=== PATIENT | female | born 1995 | race Caucasian/White ===

== ENCOUNTER → 2018-11-03 | Outpatient (CLI) | payer MEDICAID, SELFPAY ==
[2018-11-03 15:50] LABS: hCG Titer Quant., Serum 8445 mIU/mL (1-3)
== END | disposition home or self-care (01) ==
LOC: LAB 14:02
PROVIDERS: Referring Provider Obstetrics & Gynecology; Visit Provider Obstetrics & Gynecology
DX: N91.2 Amenorrhea, unspecified (principal)
CPT/HCPCS: 36415; 84702

== ENCOUNTER → 2018-11-26 | Outpatient (CLI) | payer MEDICAID, SELFPAY ==
[2018-11-26 14:51] VITALS: BMI 18.0
[2018-11-26 16:10] LABS: Absolute Lymphocyte Count 1.27 X10^3/uL (0.83-4.51); Absolute Neutrophil Count 3.7 X10^3/uL (2.0-7.7); Basophil# 0.02 X10^3/uL; Basophil% 0.4 % (0-1); Eosinophil# 0.04 X10^3/uL; Eosinophils% 0.7 % (0-5); Hematocrit 35.7 % (37-47); Hemoglobin 12.3 g/dL (12.0-15.0); Lymphocyte # 1.27 X10^3/ul (4.0); Lymphocyte % 23.5 % (19-41); Mean Corp Hgb Conc 34.5 g/dL (32-36); Mean Corpuscular Hgb 30.4 pg (27.0-32.0); Mean Corpuscular Volume 88.1 fL (81-99); Mean Platelet Vol. 9.1 fl (6.2-12.0); Monocyte# 0.39 X10^3/uL; Monocyte% 7.2 % (0-10); NRBC Flagged by Analyzer 0 % (0-5); Neutrophil # 3.67 X10^3/uL (2.7-7.7); Platelet Count 205 K/mm3 (150-450); RBC Distribution Width CV 12.3 % (11.6-14.6); RBC Distribution Width SD 39.8 fl (35.1-43.9); Red Blood Count 4.05 M/mm3 (4.2-5.4); White Blood Count 5.4 K/mm3 (4.4-11.0)
[2018-11-26 17:15] LABS: HIV - WCH Non-Reactive (Nonreactive); Rubella IgG 2.8 IU/mL
[2018-11-26 19:21] LABS: Chlamydia Trachomatis by PCR Negative (Negative); Neisserai gonorrhoeae by PCR Negative (Negative); Probe Check PASS; Sample Adequacy Control PASS; Specimen Processing Control PASS
[2018-11-27 09:27] LABS: Rapid Plasmin Reagin (RPR) NONREACTIVE (NONREACTIVE)
[2018-12-04 10:01] LABS: HPV APTIMA, High Risk Positive (Negative)
[2018-12-04 10:07] LABS: HPV Reflexed? YES, CHARGE PATIENT
== END | disposition home or self-care (01) ==
LOC: LAB 15:04
PROVIDERS: Referring Provider Obstetrics & Gynecology; Visit Provider Obstetrics & Gynecology
DX: Z34.81 Encounter for supervision of other normal pregnancy, first trimester (principal); Z31.430 Encounter of female for testing for genetic disease carrier status for procreative management
CPT/HCPCS: 85025; 86592; 86703; 86762; 86850; 86900; 87086; 87088; 87491; 87591; 87624; 88175; G0145

== ENCOUNTER → 2019-02-17 | Outpatient (CLI) | payer MEDICAID, SELFPAY ==
[2019-02-17 15:06] VITALS: BMI 18.0
== END | disposition home or self-care (01) ==
LOC: LABSPEC 18:10
PROVIDERS: Visit Provider Obstetrics & Gynecology
DX: O26.899 Other specified pregnancy related conditions, unspecified trimester (principal); N89.8 Other specified noninflammatory disorders of vagina; Z3A.00 Weeks of gestation of pregnancy not specified
CPT/HCPCS: 87070; 87205

== ENCOUNTER → 2019-04-08 13:42 | Outpatient (CLI) | payer MEDICAID, SELFPAY ==
[2019-04-08 13:04] VITALS: BMI 18.0
[2019-04-08 14:43] LABS: Absolute Lymphocyte Count 1.35 X10^3/uL (0.83-4.51); Absolute Neutrophil Count 6.6 X10^3/uL (2.0-7.7); Basophil# 0.02 X10^3/uL; Basophil% 0.2 % (0-1); Eosinophil# 0.05 X10^3/uL; Eosinophils% 0.6 % (0-5); Hematocrit 35.3 % (37-47); Lymphocyte # 1.35 X10^3/ul (4.0); Lymphocyte % 15.8 % (19-41); Mean Corpuscular Hgb 31.2 pg (27.0-32.0); Mean Corpuscular Volume 91.7 fL (81-99); Mean Platelet Vol. 9.3 fl (6.2-12.0); Monocyte# 0.49 X10^3/uL; Monocyte% 5.7 % (0-10); NRBC Flagged by Analyzer 0 % (0-5); Neutrophil # 6.63 X10^3/uL (2.7-7.7); Neutrophil % 77.3 % (47-70); Platelet Count 240 K/mm3 (150-450); RBC Distribution Width CV 12.4 % (11.6-14.6); RBC Distribution Width SD 41.2 fl (35.1-43.9); Red Blood Count 3.85 M/mm3 (4.2-5.4); White Blood Count 8.6 K/mm3 (4.4-11.0)
[2019-04-08 14:55] LABS: Glucose Challenge Gest 1H 50g 139 mg/dL (70-140)
[2019-04-08 15:26] LABS: Hepatitis B Surface Antigen Non-Reactive (Nonreactive)
== END ==
PROVIDERS: Nurse Practitioner Women's Health; Referring Provider Obstetrics & Gynecology; Visit Provider Obstetrics & Gynecology
DX: O09.90 Supervision of high risk pregnancy, unspecified, unspecified trimester (principal); Z3A.00 Weeks of gestation of pregnancy not specified
CPT/HCPCS: 36415; 82950; 85025; 87340

== ENCOUNTER → 2019-04-15 10:05 | Outpatient (CLI) | payer MEDICAID, SELFPAY ==
[2019-04-08 13:04] VITALS: BMI 18.0
[2019-04-15 12:11] LABS: Glucose GTT-Gestation. Fasting 72 mg/dL (<105)
[2019-04-15 12:12] LABS: Glucose GTT-Gestational 1 Hr 120 mg/dL (<190)
[2019-04-15 13:28] LABS: Glucose GTT-Gestational 2 Hr 103 mg/dL (<165)
[2019-04-15 14:41] LABS: Glucose GTT-Gestational 3 Hr 96 L (<145)
== END ==
PROVIDERS: Referring Provider Obstetrics & Gynecology; Visit Provider Obstetrics & Gynecology
DX: O99.810 Abnormal glucose complicating pregnancy (principal)
CPT/HCPCS: 36415; 82951; 82952

== ENCOUNTER → 2019-06-06 13:35 | Outpatient (CLI) | payer MEDICAID, SELFPAY ==
[2019-06-06 10:53] VITALS: BMI 18.0
== END ==
PROVIDERS: Referring Provider Obstetrics & Gynecology; Visit Provider Obstetrics & Gynecology
DX: O09.90 Supervision of high risk pregnancy, unspecified, unspecified trimester (principal); Z3A.00 Weeks of gestation of pregnancy not specified
CPT/HCPCS: 87081

== ENCOUNTER → 2019-06-07 11:01 | Outpatient (CLI) | payer MEDICAID, SELFPAY ==
[2019-06-06 10:53] VITALS: BMI 18.0
--- NOTE | 2019-06-07 11:02 | US_ITS ---
STUDY: SECOND AND THIRD TRIMESTER OBSTETRICAL ULTRASOUND - LIMITED REASON FOR EXAM: Female, 23 years old GROWTH LMP: Uncertain. PRIOR ULTRASOUND: None. TECHNIQUE: Transabdominal TECHNICAL QUALITY: Adequate. FINDINGS: There is a single intrauterine fetus. The fetus is in a cephalic presentation. There is demonstrated cardiac activity with a heart rate of 160 bpm. There is a normal amniotic fluid volume. The largest amniotic fluid pocket measures 4.24 cm. The amniotic fluid index (ZAIRA) is 10.6 cm. The placenta is fundal and posterior. There are Grade 2 placental changes. The cervix was not visualized due to the head positioning. BIOMETRY: BPD: 8.71 cm: 35 weeks, 2 days HC: 31.54 cm: 35 weeks, 3 days AC: 30.0 cm: 34 weeks, 0 days FL: 6.91 cm: 35 weeks, 4 days age by prior US: 36 weeks, 6 days. BETSY by prior US: June 29, 2019. age by current US: 35 weeks, 1 days. BETSY by current US: July 11, 2019. Estimated weight: 2483 grams, +/- 363 grams, 9% percentile. US/OB Limited With Biometrics IMPRESSION: Single live uterine gestation with a mean gestational age of 36 weeks and 6 days. The measurements obtained today fall within the lower range of normal. Electronically Signed: Crispin Argueta, at 11:23 EST , Service support ,
== END ==
PROVIDERS: Referring Provider Obstetrics & Gynecology; Visit Provider Obstetrics & Gynecology
DX: Z34.90 Encounter for supervision of normal pregnancy, unspecified, unspecified trimester (principal); Z3A.00 Weeks of gestation of pregnancy not specified
CPT/HCPCS: 76816

== ENCOUNTER 2019-06-07 13:42 | Outpatient (CLI) | payer MEDICAID, SELFPAY ==
[2019-06-06 10:53] VITALS: BMI 18.0
[2019-06-07 13:50] VITALS: BMI 19.9
--- NOTE | 2019-06-07 15:05 | OB.TRI.PN ---
Progress Notes Date of Service: 06/07/19 Progress Note: FHT: 130 Moderate variability reactive no decelerations category I tracing [place]: no regular Contractions reactive nst, iugr will get fu testing
== END 2019-06-07 14:20 | disposition home or self-care (01) ==
LOC: WPOUT 13:43 → OBT 13:44
PROVIDERS: Referring Provider Obstetrics & Gynecology; Visit Provider Obstetrics & Gynecology
DX: O36.5990 Maternal care for other known or suspected poor fetal growth, unspecified trimester, not applicable or unspecified (principal); Z3A.00 Weeks of gestation of pregnancy not specified
CPT/HCPCS: 59025; 59050; 99218; G0378

== ENCOUNTER 2019-06-17 13:30 | Outpatient (RCR) | payer MEDICAID, SELFPAY ==
--- NOTE | 2019-05-16 14:02 | HP.PTEVAL ---
Patient's Visit Information KINZA CRUZ is a 23 year old F referred to Physical Therapy by Ai Vera MD with a diagnosis of DORSALGIA DURING . Date of Evaluation: 05/16/19 Physical Therapist: Lyly Johnson PT, Cert MDT - Visit Plan Frequency: 2-3x /Week Duration: 4-6 Weeks Plan: *34 WEEKS PREGNANANT*. AQUATIC THERAPY FOR PAIN RELEIF, POSTURE CORRECTION/STRENGTHENING, INSTRUCTION IN APPROPRIATE BODY MECHANICS AND ACTIVITY MODIFICATIONS. DLS STARTING WITH A NEUTRAL SPINE PROGRESSING ROM TOLERATED. MINNIE LE ROM, STRETCHING AND STRENGTHENING. HEP INSTRUCTION. - Subjective Findings: Work/Leisure: UNEMPLOYEED. LIVES WITH FATHER. Disability: NO. Present symptoms: MID AND LOW BACK PAIN. PATIENT DENIES MINNIE LE NUMBNESS AND TINGLING. Present since: CHRONIC - INCREASED DURING SECOND TRIMESTER OF THIS . Pain Scale: WORST 7/10, LEAST 3/10. Currently: 5/10. Commenced as a result of: . Symptoms at onset: MID AND LOW BACK PAIN. Worse: SITTING, STANDING, BENDING OVER, TRYING TO FIX POSTURE, WASHING LEGS IN SHOWER - SO HAS TO SIT DOWN, GETTING PANTS ON. Better: CHANGE OF POSITION FREQUENTLY, VERY TEMPORARY RELIEF WITH BACK RUB. Disturbed sleep: YES. Previous history/Previous treatment: SCOLIOSIS DX'D AT AGE 14 AND BACK PAIN EVER SINCE. INCREASED PAIN 2ND TRIMESTER OF THIS . H/O PHYSICAL THERAPY AGE 16 - DIDN'T WORK, BACK BRACE. NO CHIRO, NO INJECTIONS AND NO BACK SURGERY. Coughing/sneezing/straining: NEGATIVE. Gait: INTERMITTENT LIMPING ON RIGHT LE. Difficulty initiating urinatin: NO. Accidents: UNREMARKABLE. Unexplained weight loss: NO. Imaging: YEARS AGO - NONE SINCE ABOUT AGE 16. PMH: DEPRESSION. Recent major surgery: NO. OTHER: PATIENT IS RELUCTANT TO USE BELTS OR BRACES RIGHT NOW AND WOULD LIKE TO TRY OTHER THINGS FIRST. - Objective Sitting/Standing Posture: POOR. MINNIE SCAPULAR WINGING. Lordosis: NORMAL. Lateral shift: NO. Relevant shift: N/A. Active Correction of posture: INCREASES BACK PAIN. Other Observations: INDEP GAIT AND TRANSFERS. Motor deficit: MINNIE LE STRENGTH GROSSLY 5/5 WITH MMT'ING. Sensory deficit: NO. ROM deficit: MNINIE LE'S WFL. Reflexes: UNABLE TO ELICIT MINNIE LE DTR;S. Dural Signs: NEGATIVE MINNIE LE'S. Lumbar mvmt loss: flex - MOD. ext - MOD. R SG - MIN. L SG - MIN. MILD BACK PAIN REPORTED WITH EXT AND RIGHT SG TESTING THAT DID NOT REMAIN WORSE. Core Strength: Core and Postural Strength is Poor. Palpation: INCREASED MUSCLE TONE MINNIE PARASPINAL. NO ACUTE TENDERNESS BUT PAIN IS IN LOWER THORACIC AND ENTIRE LUMBOSACRAL REGIONS. TREATMENT: NEUROMUSCULAR REEDUCATION: RETRAINING OF MVMT AND POSTURE FOR SITTING, LYING AND STANDING ACTIVITIES. - Goals Goal 1:: DECREASE C/O BACK PAIN Goal Time Frame: 4-6 Weeks Goal 2:: IMPROVE LIFTING, SITTING, STANDING, SLEEP, TRAVEL AND HOMEMAKING FUNCTION. Goal Time Frame: 4-6 Weeks Goal 3:: INSTRUCT IN PROPHYLAXIS Goal Time Frame: 4-6 Weeks - Rehabilitation Potential Rehabilitation Potential: Fair - Anticipated Interventions Patient/Client Instruction: Educate patient on: Condition, Plan of Care, Risk Factors, Benefits of Fitness Program For the Purpose of:: To improve self management Therapeutic Exercise to Include: Strength training, Body mechanics, Postural training, In an aquatic setting, Dynamic Lumbar Stabilization For the Purpose of:: To decrease pain, To improve muscle performance and motor function, To increase tolerance to activity/condition/position, To improve ability of physical actions for home/community/work/leisure Thank you for the opportunity to evaluate your patient. For Medicare and Medicare HMO plans, please review the plan of care and approve it. It will need to be FAXED BACK to us at [phone] for Medicare purposes. For Medicare only, by signing this I certify the plan of care. Please let me know if there are questions or concerns regarding this plan of care. Physician Signature: Date:
--- NOTE | 2019-06-08 12:22 | HP.PTREVAL_ITS ---
Ai Vera MD, It has been my pleasure to treat KINZA CRUZ over the last 9 visits for DORSALGIA DURING . Please see the progress note below for an update on the physical therapy plan of care! Subjective: PATIENT REPORTS SHE STILL HAS A COLD. NO LONGER HAVING A FEVER. PATIENT DENIES COMPLICATIONS WITH HER . PATIENT REPORTS THE WATER THERAPY HAS HELPED. DUE DATE - JUNE 29 2019. PATIENT REPORTS SHE IS STILL GETTING MID BACK PAIN BUT IT IS MUCH BETTER. PATIENT REPORTS THAT SINCE STARTING PT HER POSTURE HAS IMPROVED AND LIFTING IS EASIER. Objective/Function: PATIENT WAS SEEN TODAY FOR RE-ASSESSMENT OF PROGRESS TOWARD THE SET PT GOALS AND THE NEED FOR FURTHER PHYSICAL THERAPY VS READINESS FOR DISCHARGE. PATIENT IS RESPONDING WELL TO PT AND IS A GOOD CANDIATE TO CONTINUE. UPON EXAM TODAY: Lumbar mvmt loss: flex - MIN. ext - MOD. R SG - MIN. L SG - MOD. PATIENT DENIES PAIN WITH LUMBAR ROM TESTING TODAY AND ROM HAS IMPROVED. Core Strength: Core and Postural Strength is Poor BUT POSTURAL CONTROL IS IMRPOVING. Palpation: INCREASED MUSCLE TONE MINNIE PARASPINAL. NO ACUTE T ENDERNESS Plan Plan: CONT PER ORIG POC TOLERATED. Goals Goal 1:: DECREASE C/O BACK PAIN Goal Time Frame: 4-6 Weeks Goal Progress: Progressing Goal 2:: IMPROVE LIFTING, SITTING, STANDING, SLEEP, TRAVEL AND HOMEMAKING FUNCTION. Goal Time Frame: 4-6 Weeks Goal Progress: Progressing Goal 3:: INSTRUCT IN PROPHYLAXIS Goal Time Frame: 4-6 Weeks Goal Progress: Progressing Anticipated Interventions Patient/Client Instruction: Educate patient on: Condition, Plan of Care, Risk Factors, Benefits of Fitness Program For the Purpose of:: To improve self management Therapeutic Exercise to Include: Strength training, Body mechanics, Postural training, In an aquatic setting, Dynamic Lumbar Stabilization For the Purpose of:: To decrease pain, To improve muscle performance and motor function, To increase tolerance to activity/condition/position, To improve ability of physical actions for home/community/work/leisure Please do not hesitate to contact me at [phone] by phone or Fax: if you have questions or concerns regarding this new plan of care! Sincerely, Lyly Johnson, PT, Cert MDT
--- NOTE | 2019-06-28 13:52 | HP.PT.NRP ---
HP - Discharge Summary (1) - Patient Information KINZA CRUZ was seen in my office for initial evaluation on 05/16/19. The following Plan of Care was established for this patient: Initial Frequency: 2-3x /Week Initial Duration: 4-6 Weeks - Anticipated Interventions Patient/Client Instruction: Educate patient on: Condition, Plan of Care, Risk Factors, Benefits of Fitness Program For the Purpose of:: To improve self management Therapeutic Exercise to Include: Strength training, Body mechanics, Postural training, In an aquatic setting, Dynamic Lumbar Stabilization For the Purpose of:: To decrease pain, To improve muscle performance and motor function, To increase tolerance to activity/condition/position, To improve ability of physical actions for home/community/work/leisure This patient was last seen in our office . Pertinent comments regarding their Physical therapy will appear below: PATIENT CANCELLED LAST FEW MITCH'TS STATING 40 WKS AND NOT UP TO DOING THERAPY ANYMORE. At this point I will be discontinuing this patient from physical therapy. I would be happy to see this patient again in the future if found appropriate by the physician. Thank you! Lyly Johnson, PT, Cert MDT
== END 2019-06-17 19:00 | disposition home or self-care (01) ==
LOC: PT 13:30
PROVIDERS: Referring Provider Obstetrics & Gynecology; Visit Provider Obstetrics & Gynecology
DX: O99.89 Other specified diseases and conditions complicating pregnancy, childbirth and the puerperium (principal); M54.9 Dorsalgia, unspecified
CPT/HCPCS: 97112; 97113; 97161; 97164

== ENCOUNTER 2019-06-21 12:40 | Outpatient (CLI) | payer MEDICAID, SELFPAY ==
[2019-06-15 10:55] VITALS: BMI 19.9
[2019-06-21 12:56] VITALS: BP 129/74; PULSE 102
[2019-06-21 12:57] VITALS: TEMP 98.2
[2019-06-21 13:13] VITALS: BMI 20.1
[2019-06-21 13:31] VITALS: O2SAT 97
--- NOTE | 2019-06-21 14:04 | OB.TRI.PN ---
Progress Notes Date of Service: 06/21/19 Progress Note: Patient presents for triage evaluation secondary to contractions FHT: 130 Moderate variability reactive no decelerations category I tracing Tangent: irregular Contractions Assessment and plan: false labor Reactive NST, reassuring maternal and status patient discharged to home to follow-up as scheduled. See problem list details for additional plan information. Multi Select Codes - Urinary/Genital Urinary/Genital CPT Codes: 25127-08 non-stress test Interp
== END 2019-06-21 14:00 | disposition home or self-care (01) ==
LOC: WPOUT 12:44 → OBT 12:44
PROVIDERS: Referring Provider Obstetrics & Gynecology; Visit Provider Obstetrics & Gynecology
DX: O47.9 False labor, unspecified (principal); Z3A.00 Weeks of gestation of pregnancy not specified
CPT/HCPCS: 59025; 59050; 99218; G0378

== ENCOUNTER 2019-06-22 14:10 | Outpatient (CLI) | payer MEDICAID, SELFPAY ==
[2019-06-22 11:21] VITALS: BMI 20.2
[2019-06-22 14:20] VITALS: BMI 20.9
[2019-06-22 14:32] VITALS: BP 138/85; PULSE 102
[2019-06-22 14:33] VITALS: TEMP 98.5
[2019-06-22 15:15] LABS: ROM Internal Control Test YES-OK TO RESULT pt. (Internal QC); ROM Patient Test Negative (Negative)
--- NOTE | 2019-06-23 15:02 | OB.TRI.PN ---
Progress Notes Date of Service: 06/22/19 Progress Note: patient seen negative ROM false labor Laboratory Studies: Laboratory Tests 06/22/19 Range/Units 14:45 Vag Amniotic Fld Detect Negative (Negative) Multi Select Codes - Urinary/Genital Urinary/Genital CPT Codes: No Charge
== END 2019-06-22 15:32 | disposition home or self-care (01) ==
LOC: WPOUT 14:15 → OBT 14:15
PROVIDERS: Referring Provider Obstetrics & Gynecology; Visit Provider Obstetrics & Gynecology
DX: O47.9 False labor, unspecified (principal); Z3A.00 Weeks of gestation of pregnancy not specified
CPT/HCPCS: 59025; 59050; 84112; 99218; G0378

== ENCOUNTER 2019-06-29 03:41 | Inpatient (IN) | payer MEDICAID, SELFPAY ==
[2019-04-08 13:04] VITALS: BMI 18.0
[2019-06-29] VITALS (54 sets, daily range): BP systolic 98–141; BP diastolic 57–88; PULSE 80–225; RESP 14–18; TEMP 37.2–37.6; O2SAT 97–100; BMI 20.5
[2019-06-29] MEDS: Lactated Ringers 500 ML 999 ML IV ×2 (03:55→06:04)
[2019-06-29 04:23] LABS: Absolute Lymphocyte Count 2.07 X10^3/uL (0.83-4.51); Absolute Neutrophil Count 9.5 X10^3/uL (2.0-7.7); Basophil# 0.04 X10^3/uL; Basophil% 0.3 % (0-1); Eosinophil# 0.08 X10^3/uL; Eosinophils% 0.6 % (0-5); Hematocrit 33.4 % (37-47); Hemoglobin 10.8 g/dL (12.0-15.0); Lymphocyte # 2.07 X10^3/ul (4.0); Lymphocyte % 16.5 % (19-41); Mean Corp Hgb Conc 32.3 g/dL (32-36); Mean Corpuscular Volume 86.5 fL (81-99); Mean Platelet Vol. 9.7 fl (6.2-12.0); Monocyte# 0.81 X10^3/uL; Monocyte% 6.5 % (0-10); NRBC Flagged by Analyzer 0 % (0-5); Neutrophil % 75.9 % (47-70); Platelet Count 228 K/mm3 (150-450); RBC Distribution Width CV 13.2 % (11.6-14.6); RBC Distribution Width SD 40.7 fl (35.1-43.9); Red Blood Count 3.86 M/mm3 (4.2-5.4); White Blood Count 12.5 K/mm3 (4.4-11.0)
[2019-06-29] MEDS: Lactated Ringers 1,000 ML 200 ML IV ×2 (04:26→10:20)
[2019-06-29] MEDS: fentaNYL-bupivacaine (epidural) 100 ML BAG EPIDURAL ×2 (05:45→10:21)
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
[2019-06-29] MEDS: Oxytocin 30 units/NS 500 ml 30 UNITS/500 ML IV.SOLN IV (10:35)
[2019-06-29] MEDS: fentaNYL 100 MCG/2 ML Ampul IV (14:02)
--- NOTE | 2019-06-29 14:27 | PCM.OPRPT ---
Problem List (1) SROM (spontaneous rupture of membranes) Status: Acute (2) Abnormal glucose Status: Acute Comment: Normal 3hr GTT (3) ASCUS with positive high risk HPV Status: Acute Comment: needs repeat pap at PP (4) Rubella non-immune status, antepartum Status: Acute Comment: avoidance and give MMR (5) Tobacco use during Status: Acute Qualifiers: Comment: encouraged cessation (6) Status: Acute Qualifiers: Comment: nipt-low risk, carrier negative 13 out of 14. 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 anatomy scan normal (7) Supervision of high risk , antepartum Status: Acute Comment: PRR BETSY 06/29/19 girl Nova FOB not involved Josue Vaginal Delivery Maternal Presentation: Active Labor ial Method of Induction: Pitocin Amniotic Membrane Rupture Type: Spontaneous at home Amniotic Fluid Description: Clear Final BETSY: 06/29/19 Gestational age: 40 Weeks and 0 Days Date of Procedure: 06/29/19 Pre-Operative Diagnosis: ial Post-Operative Diagnosis: same Surgery/ Procedure Performed: Spontaneous Vaginal Delivery Type of Anesthesia: Epidural Description of Procedure: Patient began pushing and delivered the head in the [TOSHA] presentation. The head was delivered atraumatically [and a loose nuchal cord ?1 was identified and easily reduced over the infant's head]. The anterior and posterior shoulders delivered without complication followed by the rest of the infant and the was placed on the maternal abdomen. Delayed cord clamping was employed for approximately 60 seconds. Cord was clamped and cut and gentle traction was applied to the cord and the placenta delivered spontaneously immediately following it was noted to be intact with three-vessel cord. The perineum and vagina were inspected and noted to have a small second-degree perineal laceration that was repaired in the usual fashion with 3-0 Vicryl Rapide. EBL was 200 cc. Patient and tolerated delivery well. Placental Delivery Description: Spontaneous Placenta Disposition: [facility] Cord Vessel Description: 3 Vessels Estimated Blood Loss: 200 A gender: Female (1 minute): 8 (5 minute): 9 Episiotomy Description: None Laceration: Perineal Extension/lac, 2nd degree Medications given after delivery: IV Pitocin Complications: None Multi Select Codes - Urinary/Genital Urinary/Genital CPT Codes: 96265 Vaginal Delivery+ PP Care([facility])
[2019-06-29] MEDS: Oxytocin 30 units/NS 500 ml 30 UNITS/500 ML IV.SOLN 334 UNITS IV (14:49)
[2019-06-30] VITALS (9 sets, daily range): BP systolic 95–128; BP diastolic 57–78; PULSE 60–102; RESP 14–16; TEMP 36.4–36.9
[2019-06-30] MEDS: Senna/Docusate Sodium 1 Tablet PO (02:19)
--- NOTE | 2019-06-30 07:40 | PCM.PN.OB ---
Patient Problems: Active and Suspected Problems (Last Reviewed 06/27/19 @ 13:02 by Jessie Monte) SROM (spontaneous rupture of membranes) (Acute) Subjective: Doing well, no complaints.Pain controlled. Denies CP, SOB, N,V. Ambulating well, tolerating po. Lochia moderate, bottle feeding. - Physical Exam Vitals/I&O's: Vital Signs Temp Pulse Resp BP 98.5 F 60 14 112/57 L 06/30/19 03:25 06/30/19 03:25 06/30/19 03:25 06/30/19 03:25 Oxygen Delivery Method Room Air Weight: 135 lb 2.294 oz Body Mass Index (BMI) 20.5 Intake and Output for Last 24 Hours 06/28/19 06/29/19 06/30/19 23:59 23:59 23:59 Intake Total 4477.64 / 4477.64 Output Total 2150 / 2150 Balance 2327.64 / 2327.64 General: Alert, Oriented x3 Abdomen: Soft, Non Tender, Non-Distended, - - FF below U Current Medications Acetaminophen (Tylenol) 1,000 mg PO Q8H PRN PRN PRN Reason: Pain Score 1-3/10 Bisacodyl (Dulcolax) 10 mg RECTAL UD PRN PRN Reason: If no BM Dibucaine (Dibucaine) 1 applic TOPICAL TID PRN PRN; Protocol PRN Reason: Discomfort Fluoxetine HCl (Prozac) 20 mg PO DAILY SAUMYA Hydrocortisone (Hytone) 1 applic TOPICAL TID PRN PRN; Protocol PRN Reason: Discomfort Methylergonovine Maleate (Methergine) 0.2 mg IM X1 PRN PRN Reason: Excess bleeding/uterine atony Ondansetron HCl (Zofran) 4 mg IV Q4H PRN PRN PRN Reason: Nausea Multivit/Folic Acid/Iron (Prenatabs Fa) 1 tablet PO DAILY@1200 SAUMYA Senna/Docusate Sodium (Senokot-S, Mariana-Colace) 1 - 2 tablet PO DAILY PRN PRN PRN Reason: Constipation Last Admin: 06/30/19 02:19 Dose: 1 tablet Documented by: Simethicone (Mylicon) 80 mg PO PCHS PRN PRN Reason: Indigestion/Stomach pain Sodium Chloride () 5 - 15 ml IV UD PRN PRN Reason: SALINE FLUSH Medical Necessity - Tobacco Use Smoking Status: Current every day smoker Assessment/Plan All Active Problems (Last Reviewed 06/27/19 @ 13:02 by Jessie Monte) SROM (spontaneous rupture of membranes) (Acute) Uterine size-date discrepancy, third trimester (Acute) Abnormal glucose (Acute) ASCUS with positive high risk HPV (Acute) Rubella non-immune status, antepartum (Acute) Tobacco use during (Acute) (Acute) Supervision of high risk , antepartum (Acute) URI, acute (Resolved) s/p PPD # 1 1. routine post delivery care 2. bottle feeding- support given 3. rh positive 4. rubella NON immune
[2019-06-30] MEDS: Dibucaine 30 GM Tube 1 APPLIC TOPICAL (08:33)
[2019-06-30] MEDS: FLUoxetine 20 MG Capsule PO (10:27)
[2019-06-30] MEDS: Acetaminophen 500 MG Tablet 1000 MG PO (11:08)
[2019-06-30] MEDS: Naproxen 250 MG Tablet 500 MG PO (16:39)
[2019-07-01 02:40] VITALS: BP 111/77; PULSE 86; RESP 16; TEMP 36.4
[2019-07-01] MEDS: Naproxen 250 MG Tablet 500 MG PO (03:33)
--- NOTE | 2019-07-01 09:40 | DCINST_ITS ---
Discharge Diet: No Restrictions Discharge Activity: Return to Normal Activity, May not drive while taking narcotic pain medications., May Shower May resume sexual activity in: 4-6 weeks Call your doctor if your incision/area has: Continuous Slow Oozing, Sudden Increased Bleeding, Increased Pain/ Swelling, Increased Redness, Foul Smelling Discharge Additional Instructions: If you experience any of the following, contact your healthcare provider. * Bleeding that soaks a pad every hour for 2 hours * Fever 100.4 or higher * Unrelieved incision or abdominal pain * Swelling, redness, discharge or bleeding from your incision or episiotomy site * Your incision begins to separate * Problems urinating (including inability to urinate or burning while urinating). * Visual changes * Severe headache * Flu-like symptoms * Pain or redness in one of both of your breasts * Pain, warmth, tenderness or swelling in your legs, especially the calf area * Frequent nausea and vomiting * Symptoms of depression or anxiety If you experience any of the following, call 911 or go to the nearest Emergency Room. * Chest pain * Problems breathing * Seizure activity * Partial or complete paralysis of a body part, slurred speech, weakness or drooping of the face, or a sudden inability to walk or hold your balance Allergies/Adverse Reactions: Allergies diphenhydramine [From Benadryl] Allergy (Mild, Verified 06/29/19 02:00) Hives Medications to take at Discharge vitamin#30 30 mg iron-10 mg iron-folic acid 1 mg-omg3 capsule 1 tab PO DAILY cap 11/26/18 Fluoxetine HCl 20 mg PO DAILY 06/29/19 Please Follow Up With: Ai Vera MD - [phone] When: Call to make an appointment with your doctor in 6 weeks. If you had elevated Blood pressure or 4th degree laceration you will need to be seen in 2 weeks. Primary Care Physician: Care Physician,No Primary [Primary Care Provider] - Test Results: Test results from this visit will be discussed in further detail at your follow- up appointment, if applicable.
--- NOTE | 2019-07-01 09:40 | PCM.DCVAG ---
Discharge Diet: No Restrictions Discharge Activity: Return to Normal Activity, May not drive while taking narcotic pain medications., May Shower May resume sexual activity in: 4-6 weeks Call your doctor if your incision/area has: Continuous Slow Oozing, Sudden Increased Bleeding, Increased Pain/ Swelling, Increased Redness, Foul Smelling Discharge Additional Instructions: If you experience any of the following, contact your healthcare provider. Bleeding that soaks a pad every hour for 2 hours Fever 100.4 or higher Unrelieved incision or abdominal pain Swelling, redness, discharge or bleeding from your incision or episiotomy site Your incision begins to separate Problems urinating (including inability to urinate or burning while urinating). Visual changes Severe headache Flu-like symptoms Pain or redness in one of both of your breasts Pain, warmth, tenderness or swelling in your legs, especially the calf area Frequent nausea and vomiting Symptoms of depression or anxiety If you experience any of the following, call 911 or go to the nearest Emergency Room. Chest pain Problems breathing Seizure activity Partial or complete paralysis of a body part, slurred speech, weakness or drooping of the face, or a sudden inability to walk or hold your balance Allergies/Adverse Reactions: Allergies diphenhydramine [From Benadryl] Allergy (Mild, Verified 06/29/19 02:00) Hives Medications to take at Discharge vitamin#30 30 mg iron-10 mg iron-folic acid 1 mg-omg3 capsule 1 tab PO DAILY cap 11/26/18 Fluoxetine HCl 20 mg PO DAILY 06/29/19 Please Follow Up With: Ai Vera MD - [phone] When: Call to make an appointment with your doctor in 6 weeks. If you had elevated Blood pressure or 4th degree laceration you will need to be seen in 2 weeks. Primary Care Physician: Care Physician,No Primary [Primary Care Provider] - Test Results: Test results from this visit will be discussed in further detail at your follow-up appointment, if applicable.
--- NOTE | 2019-07-01 09:41 | PN.OBGYN_ITS ---
Patient Problems: Active and Suspected Problems (Last Reviewed 06/27/19 @ 13:02 by Jessie Monte) SROM (spontaneous rupture of membranes) (Acute) Subjective: doing well no complaints pain controlled no CP SOB N V ambulating well tolerating po lochia moderate, bottle feeding going well - Physical Exam Vitals/I&O's: Vital Signs Temp Pulse Resp BP 97.6 F L 86 16 111/77 07/01/19 02:40 07/01/19 02:40 07/01/19 02:40 07/01/19 02:40 Oxygen Delivery Method Room Air Weight: 135 lb 2.294 oz Body Mass Index (BMI) 20.5 Intake and Output for Last 24 Hours 06/29/19 06/30/19 07/01/19 23:59 23:59 23:59 Intake Total 4477.64 / 4477.64 Output Total 2150 / 2150 Balance 2327.64 / 2327.64 General: Alert, Oriented x3 Current Medications Acetaminophen (Tylenol) 1,000 mg PO Q8H PRN PRN PRN Reason: Pain Score 1-3/10 Last Admin: 06/30/19 11:08 Dose: 1,000 mg Documented by: Bisacodyl (Dulcolax) 10 mg RECTAL UD PRN PRN Reason: If no BM Dibucaine (Dibucaine) 1 applic TOPICAL TID PRN PRN; Protocol PRN Reason: Discomfort Last Admin: 06/30/19 08:33 Dose: 1 applicatio Documented by: Fluoxetine HCl (Prozac) 20 mg PO DAILY [facility] Last Admin: 06/30/19 10:27 Dose: 20 mg Documented by: Hydrocortisone (Hytone) 1 applic TOPICAL TID PRN PRN; Protocol PRN Reason: Discomfort Medroxyprogesterone Acetate (Depo-Provera) 150 mg IM .[id number] [facility] Methylergonovine Maleate (Methergine) 0.2 mg IM X1 PRN PRN Reason: Excess bleeding/uterine atony Naproxen (Naprosyn) 500 mg PO BID PRN PRN PRN Reason: PAIN/FEVER Last Admin: 07/01/19 03:33 Dose: 500 mg Documented by: Ondansetron HCl (Zofran) 4 mg IV Q4H PRN PRN PRN Reason: Nausea Multivit/Folic Acid/Iron (Prenatabs Fa) 1 tablet PO DAILY@1200 SAUMYA Last Admin: 06/30/19 13:09 Dose: Not Given Documented by: Senna/Docusate Sodium (Senokot-S, Mariana-Colace) 1 - 2 tablet PO DAILY PRN PRN PRN Reason: Constipation Last Admin: 06/30/19 02:19 Dose: 1 tablet Documented by: Simethicone (Mylicon) 80 mg PO PCHS PRN PRN Reason: Indigestion/Stomach pain Sodium Chloride () 5 - 15 ml IV UD PRN PRN Reason: SALINE FLUSH Medical Necessity - Tobacco Use Smoking Status: Current every day smoker Assessment/Plan All Active Problems (Last Reviewed 06/27/19 @ 13:02 by Jessie Monte) SROM (spontaneous rupture of membranes) (Acute) Uterine size-date discrepancy, third trimester (Acute) Abnormal glucose (Acute) ASCUS with positive high risk HPV (Acute) Rubella non-immune status, antepartum (Acute) Tobacco use during (Acute) (Acute) Supervision of high risk , antepartum (Acute) URI, acute (Resolved) s/p PPD # 2 1. routine post delivery care 2. bottle feeding- support given 3. rh positive 4. rubella immune
[2019-07-01] MEDS: Prenatal Vits Tablet 1 TABLET PO (11:07)
[2019-07-01] MEDS: FLUoxetine 20 MG Capsule PO (11:07)
[2019-07-01] MEDS: MedroxyPROGESTERone 150 MG/ML Syringe IM (11:34)
== END 2019-07-01 13:00 | disposition home or self-care (01) | DRG 560 ==
LOC: WPOUT 03:43 → WP 03:43
PROVIDERS: Admitting Provider Obstetrics & Gynecology; Referring Provider Obstetrics & Gynecology; Visit Provider Obstetrics & Gynecology
DX: O69.81X0 Labor and delivery complicated by cord around neck, without compression, not applicable or unspecified (principal); Z37.0 Single live birth; O99.334 Smoking (tobacco) complicating childbirth; O98.52 Other viral diseases complicating childbirth; R87.810 Cervical high risk human papillomavirus (HPV) DNA test positive; F17.200 Nicotine dependence, unspecified, uncomplicated; Z3A.40 40 weeks gestation of pregnancy; O70.1 Second degree perineal laceration during delivery
CPT/HCPCS: 59025; 59050; 85025; 86850; 86900; 86901; 99218; J7120; G0378; J3490

== ENCOUNTER → 2020-07-24 15:30 | Outpatient (CLI) | payer MEDICAID, SELFPAY ==
[2020-07-24 15:27] VITALS: BMI 21.4
[2020-07-27 20:08] LABS: Chlamydia By Nucleic Acid AMP Negative (Negative)
[2020-07-27 20:31] LABS: Gonococcus By Nucleic Acid AMP Negative (Negative)
[2020-07-31 20:31] LABS: HPV APTIMA, High Risk Positive (Negative); HPV Reflexed? YES, CHARGE PATIENT
== END ==
PROVIDERS: Referring Provider Nurse Practitioner Women's Health; Visit Provider Nurse Practitioner Women's Health
DX: Z12.4 Encounter for screening for malignant neoplasm of cervix (principal); Z11.3 Encounter for screening for infections with a predominantly sexual mode of transmission
CPT/HCPCS: 87491; 87591; 87624; 88175; G0145

== ENCOUNTER → 2020-08-14 | Outpatient (CLI) | payer MEDICAID, SELFPAY ==
[2021-08-17 11:08] LABS: Chlamydia By Nucleic Acid AMP Negative (Negative)
[2021-08-17 11:25] LABS: Gonococcus By Nucleic Acid AMP Negative (Negative)
[2021-08-23 09:34] LABS: HPV APTIMA, High Risk Positive (Negative)
[2021-08-23 18:10] LABS: HPV Reflexed? YES, CHARGE PATIENT
== END | disposition home or self-care (01) ==
LOC: LABSPEC 08-15 06:29
PROVIDERS: Referring Provider Nurse Practitioner Women's Health; Visit Provider Nurse Practitioner Women's Health
DX: N76.0 Acute vaginitis (principal); Z11.3 Encounter for screening for infections with a predominantly sexual mode of transmission
CPT/HCPCS: 87070; 87205; 87491; 87591; 87624; 88175; G0145

== ENCOUNTER → 2021-03-18 16:17 | Outpatient (CLI) | payer MEDICAID, SELFPAY ==
[2021-03-20 22:06] LABS: Chlamydia By Nucleic Acid AMP Negative (Negative)
[2021-03-20 22:49] LABS: Gonococcus By Nucleic Acid AMP Negative (Negative)
[2021-03-25 14:21] LABS: HPV Reflexed? NOT INDICATED
== END ==
PROVIDERS: Referring Provider Nurse Practitioner Women's Health; Visit Provider Nurse Practitioner Women's Health
DX: Z12.4 Encounter for screening for malignant neoplasm of cervix (principal); Z11.3 Encounter for screening for infections with a predominantly sexual mode of transmission
CPT/HCPCS: 87491; 87591; 88175; G0145

== ENCOUNTER → 2021-09-25 | Outpatient (CLI) | payer MEDICAID, SELFPAY ==
[2021-09-25 13:41] LABS: Absolute Lymphocyte Count 2.05 X10^3/uL (0.83-4.51); Absolute Neutrophil Count 3.3 X10^3/uL (2.0-7.7); Basophil# 0.05 X10^3/uL; Basophil% 0.9 % (0-1); Eosinophils% 1.7 % (0-5); Hematocrit 37.8 % (37-47); Hemoglobin 12.9 g/dL (12.0-15.0); Lymphocyte # 2.05 X10^3/ul (0.83-4.51); Lymphocyte % 35.2 % (19-41); Mean Corp Hgb Conc 34.1 g/dL (32-36); Mean Corpuscular Hgb 30.6 pg (27.0-32.0); Mean Corpuscular Volume 89.6 fL (81-99); Mean Platelet Vol. 8.6 fl (6.2-12.0); Monocyte# 0.34 X10^3/uL; Monocyte% 5.8 % (0-10); NRBC Flagged by Analyzer 0 % (0-5); Neutrophil # 3.27 X10^3/uL (2.7-7.7); Neutrophil % 56.2 % (47-70); Platelet Count 212 K/mm3 (150-450); RBC Distribution Width CV 13.2 % (11.6-14.6); RBC Distribution Width SD 43.6 fl (35.1-43.9); Red Blood Count 4.22 M/mm3 (4.2-5.4); White Blood Count 5.8 K/mm3 (4.4-11.0)
[2021-09-25 14:16] LABS: Thyroid Stim Hormone (TSH) 1.09 uIU/mL (0.358-3.74)
== END | disposition home or self-care (01) ==
LOC: PAVLAB 13:08
PROVIDERS: Referring Provider Nurse Practitioner Women's Health; Visit Provider Nurse Practitioner Women's Health
DX: N92.1 Excessive and frequent menstruation with irregular cycle (principal); Z13.29 Encounter for screening for other suspected endocrine disorder
CPT/HCPCS: 36415; 84443; 85025

== ENCOUNTER 2021-10-09 15:36 | Emergency (ER) | payer MEDICAID, SELFPAY ==
[2021-10-09 15:37] VITALS: BP 122/86; PULSE 100; RESP 20; TEMP 37; BMI 18.6
--- NOTE | 2021-10-09 16:20 | EDS_ITS ---
HPI HPI - GI History of Present Illness Chief Complaint: Abd Pain PFSH PFS Medical History (Updated 09/26/21 @ 17:[address] Ai Vera MD) ASCUS with positive high risk HPV Depression History of hemorrhoids Home Medications etonogestrel 68 mg subdermal implant (Nexplanon) 1 implant subdermal ONCE 06/06/21 [History Last Taken Unknown] escitalopram oxalate 10 mg tablet (Lexapro) 10 mg PO DAILY #30 tabs 08/14/21 [Rx Last Taken Unknown] estradiol 1 mg tablet (Estrace) 1 mg PO BID #20 tabs 10/07/21 [Rx Last Taken Unknown] naproxen 500 mg tablet (Naprosyn) 500 mg PO BID PRN pain #20 tabs 10/09/21 [Rx Last Taken Unknown] ondansetron 4 mg disintegrating tablet 4 mg PO Q8H PRN nausea and vomiting #10 tabs 10/09/21 [Rx Last Taken Unknown] Allergy/AdvReac Type Severity Reaction Status Date / Time diphenhydramine Allergy Mild Hives Verified 08/14/21 13:30 [From Maria Isabel] Family History Mother Cancer stage 4 brain cancer Social History current occupational status: employed current occupation: [employer] Smoking Status: Current every day smoker tobacco type: e-cigarettes alcohol intake: never substance use type: does not use caffeine: Yes what type of physical activity do you participate in: walking seatbelt use: always do you feel safe at home: Yes EXAM Physical Exam Const Vital Signs: 10/09/21 15:37 Temperature 98.6 F Temperature Source Temporal Pulse Rate 100 Respiratory Rate 20 H Blood Pressure 122/86 H Blood Pressure Mean 98 MDM MDM MDM Narrative Medical decision making narrative: Patient presenting with abdominal pain. She describes as left upper and left epigastric region. Blood work is obtained and her CBC and BMP are unremarkable. LFTs are normal with exception of a bilirubin of 1.10. hCG negative. Patient initially treated with morphine, Zofran, IV fluids. CT of the abdomen pelvis with IV contrast is obtained and does show some concern for inflammation around the uterus. After speaking with the patient she states that she currently had heavy menstrual bleeding for about a month and this is just recently stopped. She has been seeing her geophysical manager for this. I did obtain a transvaginal ultrasound which interpreted by the radiologist shows no acute pathology. Patient counseled on findings. Patient did require another dose of morphine in the ER. Impression: 1. Abdominal pain 2. Nausea Lab Data Attestation: I reviewed the patient's lab results. Labs: Laboratory Results - last 24 hr 10/09/21 10/09/21 10/09/21 16:28 16:28 16:28 WBC 6.5 RBC 4.56 Hgb 13.9 Hct 41.0 MCV 89.9 MCH 30.5 MCHC 33.9 RDW Std Deviation 42.1 RDW Coeff of Teresita 12.8 Plt Count 239 MPV 8.7 Immature Gran % (Auto) 0.200 Neut % (Auto) 77.3 H Lymph % (Auto) 14.1 L [place] % (Auto) 6.9 Eos % (Auto) 0.9 Baso % (Auto) 0.6 Absolute Neuts (auto) 5.1 Absolute Lymphs (auto) 0.92 Nucleated RBC % 0 Sodium 138 Potassium 4.2 Chloride 107 Carbon Dioxide 27.0 Anion Gap 4 L BUN 8 Creatinine 0.85 Estim Creat Clear Calc 87.16 Est GFR (MDRD) Af Amer 106 Est GFR (MDRD) Non-Af 87 BUN/Creatinine Ratio 9.4 L Glucose 83 Calcium 9.0 Total Bilirubin 1.10 H AST 6 L ALT 14 Alkaline Phosphatase 51 Total Protein 7.9 Albumin 4.3 Globulin 3.6 Albumin/Globulin Ratio 1.2 Lipase 142 Serum , Qual NEGATIVE Urine Test 10/09/21 16:39 WBC RBC Hgb Hct MCV MCH MCHC RDW Std Deviation RDW Coeff of Teresita Plt Count MPV Immature Gran % (Auto) Neut % (Auto) Lymph % (Auto) [place] % (Auto) Eos % (Auto) Baso % (Auto) Absolute Neuts (auto) Absolute Lymphs (auto) Nucleated RBC % Sodium Potassium Chloride Carbon Dioxide Anion Gap BUN Creatinine Estim Creat Clear Calc Est GFR (MDRD) Af Amer Est GFR (MDRD) Non-Af BUN/Creatinine Ratio Glucose Calcium Total Bilirubin AST ALT Alkaline Phosphatase Total Protein Albumin Globulin Albumin/Globulin Ratio Lipase Serum , Qual Urine Test Negative Radiography Diagnostic Testing: Clinical Impression(s) from Imaging Studies Abdomen/Pelvis CT 10/09/21 17:43 IMPRESSION: Mild inflammatory changes surrounding the uterus. Consider pelvic ultrasound. Mild nonspecific periportal edema. Electronically Signed: Shravan Hernadez MD at 18:10 EDT , Transvaginal US 10/09/21 18:15 IMPRESSION: Normal pelvic ultrasound. Electronically Signed: Shravan Hernadez MD at 19:40 EDT , Discharge Plan Triage Chief Complaint: Abd Pain ED Provider: Shemar Wesley Dx/Rx/DC Orders Instructions: ED Abdominal Pain Unkn Cause Fem, ED Vomiting (Adult) Prescriptions: New ondansetron 4 mg tablet,disintegrating 4 mg PO Q8H PRN (Reason: nausea and vomiting) Qty: 10 0RF naproxen [Naprosyn] 500 mg tablet 500 mg PO BID PRN (Reason: pain) Qty: 20 0RF No Action Nexplanon 68 mg implant 1 implant subdermal ONCE Rx Instructions: as a single dose escitalopram oxalate [Lexapro] 10 mg tablet 10 mg PO DAILY Qty: 30 1RF estradiol [Estrace] 1 mg tablet 1 mg PO BID Qty: 20 0RF Primary Care Provider: Care Physician,No Primary Referrals: Care Physician,No Primary [Primary Care Provider] - Disposition Disposition: Home, Self Care
[2021-10-09] MEDS: Morphine 4 MG/ML Syringe IV ×2 (16:26→18:18)
[2021-10-09] MEDS: 0.9% Normal Saline 1,000 ML 1000 ML IV (16:26)
[2021-10-09] MEDS: Ondansetron 4 MG/2 ML Vial IV (16:26)
[2021-10-09 16:42] LABS: Absolute Lymphocyte Count 0.92 X10^3/uL (0.83-4.51); Absolute Neutrophil Count 5.1 X10^3/uL (2.0-7.7); Basophil# 0.04 X10^3/uL; Basophil% 0.6 % (0-1); Eosinophil# 0.06 X10^3/uL; Eosinophils% 0.9 % (0-5); Hemoglobin 13.9 g/dL (12.0-15.0); Lymphocyte # 0.92 X10^3/ul (0.83-4.51); Lymphocyte % 14.1 % (19-41); Mean Corp Hgb Conc 33.9 g/dL (32-36); Mean Corpuscular Hgb 30.5 pg (27.0-32.0); Mean Corpuscular Volume 89.9 fL (81-99); Mean Platelet Vol. 8.7 fl (6.2-12.0); Monocyte# 0.45 X10^3/uL; Monocyte% 6.9 % (0-10); NRBC Flagged by Analyzer 0 % (0-5); Neutrophil # 5.06 X10^3/uL (2.7-7.7); Neutrophil % 77.3 % (47-70); Platelet Count 239 K/mm3 (150-450); RBC Distribution Width CV 12.8 % (11.6-14.6); RBC Distribution Width SD 42.1 fl (35.1-43.9); Red Blood Count 4.56 M/mm3 (4.2-5.4); White Blood Count 6.5 K/mm3 (4.4-11.0)
[2021-10-09 16:59] LABS: ALB/GLOB Ratio 1.2 RATIO (0.9-2.4); AST(SGOT) 6 U/L (15-37); Alanine Aminotransfer ALT/SGPT 14 U/L (13-56); Albumin, Serum 4.3 g/dL (3.2-5.0); Alkaline Phosphatase 51 U/L (45-117); Anion Gap 4 (5-15); BUN 8 mg/dL (7-18); BUN/Creat Ratio 9.4 RATIO (10-20); Chloride 107 mmol/L (98-107); Creatinine, Serum 0.85 mg/dL (0.55-1.02); EST Glomerular Filtration Rate 87 mL/min (>60); Est Glom Filt Rate - Afr Amer 106 mL/min (>60); Estimated Creatinine Clearance 87.16 ml/min; Globulin 3.6 g/dL (2.2-4.2); Glucose 83 mg/dL (74-106); Lipase 142 U/L (73-393); Potassium 4.2 mmol/L (3.5-5.1); Protein, Total 7.9 g/dL (6.4-8.2); Sodium Level 138 mmol/L (136-145)
[2021-10-09 17:07] LABS: Internal QC Validated? YES +Cl - CLEAR BKGD; Pregnancy, Urine Negative Negative
[2021-10-09 17:10] LABS: Internal QC Validated? YES +Cl - CLEAR BKGD; Pregnancy, Serum, hCG Quali. NEGATIVE Negative
--- NOTE | 2021-10-09 17:43 | CT_ITS ---
INDICATION: abdominal pain EXAMINATION: CT Abdomen And Pelvis W/ Contrast Injection TECHNIQUE: Helically acquired images were obtained of the abdomen and pelvis after IV contrast. A radiation dose optimization technique was used for this scan. IV Contrast dosage and agent: IV 100mL Isovue-300 Oral contrast: None. COMPARISON: None. FINDINGS: Visualized lung bases: Unremarkable Liver: Mild periportal edema. Gallbladder: Unremarkable Spleen: Unremarkable Pancreas: Unremarkable Adrenal Glands: Unremarkable Kidneys: Unremarkable Vasculature: Unremarkable GI Tract: Unremarkable Lymphadenopathy: None Peritoneum: Trace pelvic free fluid. Bladder: Unremarkable Reproductive organs: Mild inflammatory changes surrounding the uterus. Bones/Soft tissues: No suspicious osseous or soft tissue lesions CT/Abdomen/Pelvis W IV Cont ONLY IMPRESSION: Mild inflammatory changes surrounding the uterus. Consider pelvic ultrasound. Mild nonspecific periportal edema. Electronically Signed: Shravan Hernadez MD at 18:10 EDT ,
--- NOTE | 2021-10-09 18:15 | US_ITS ---
INDICATION: pelvic pain EXAMINATION: US Transvaginal Non-OB TECHNIQUE: Transvaginal (for optimal evaluation of the adnexa) pelvic ultrasound was performed. Grayscale, spectral waveform, and color flow Doppler evaluation of the adnexa. COMPARISON: None. FINDINGS: UTERUS: Retroverted. The uterus measures 5.6 x 5 x 3.5 cm. There is no uterine mass. The endometrial stripe measures 2 in AP diameter which is within normal limits. RIGHT OVARY: Measures 3 x 1.7 x 1.2 cm. Non-enlarged, normal echogenicity. There is normal arterial inflow and venous outflow present in the right ovary. LEFT OVARY: Measures 2.7 x 1.8 x 1.2 cm. Non-enlarged, normal echogenicity. There is normal arterial inflow and venous outflow present in the left ovary. FREE FLUID: None. US/Transvaginal Non- IMPRESSION: Normal pelvic ultrasound. Electronically Signed: Shravan Hernadez MD at 19:40 EDT ,
--- NOTE | 2021-10-09 18:27 | CM.ED ---
Social Work Consult: No PCP Referral source: Self referral due to above. Met with patient in room. Introduced self and social and political studies professor role. Patient agreeable to speak with this social and political studies professor. Patient confirms to not have a PCP. Patient is open to this social and political studies professor providing patient with list of in-network PCP's that are local to patient geographical region. Patient denies any other community concerns such as housing or transportation. Dereck Toure MSW, [facility]
[2021-10-09 19:18] LABS: Mucous, Urine 0 SEEN /hpf (<or=2+); Red Blood Cells-Urine 0 SEEN /hpf (0-5)
[2021-10-09 20:59] VITALS: BP 118/79; PULSE 78; RESP 15; O2SAT 98
[2021-10-09 21:22] LABS: Chlamydia Trachomatis by PCR Negative (Negative); Neisserai gonorrhoeae by PCR Negative (Negative); Probe Check PASS; Sample Adequacy Control PASS; Specimen Processing Control PASS
[2021-10-09 21:24] LABS: Color, Urine Yellow (Yellow); Glucose, Dipstick Normal (Normal); Ketone-Dipstick Negative (Negative); Leukocyte Esterase-Dipstick 25 /ul (Negative); Nitrite-Dipstick Negative (Negative); Occult Blood-Urine Negative /ul (Negative); Protein-Dipstick Negative (Negative); Urine Bilirubin Dipstick Negative (Negative); Urine Clarity Clear (Clear); Urine Urobilinogen Normal (Normal)
[2021-10-09 21:30] LABS: Squamous Epithelial Cells - UA 0-5 SEEN /hpf (5-10)
[2021-10-09 21:31] LABS: Bacteria RARE /hpf (None Seen); White Blood Cells 0-5 SEEN /hpf (0-5)
== END 2021-10-09 21:01 | disposition home or self-care (01) ==
PROVIDERS: Emergency Provider Student in an Organized Health Care Education/Training Program; Visit Provider Student in an Organized Health Care Education/Training Program
DX: R10.9 Unspecified abdominal pain (principal); R11.0 Nausea; F17.290 Nicotine dependence, other tobacco product, uncomplicated
CPT/HCPCS: 74177; 76830; 80053; 81001; 81025; 83690; 84703; 85025; 87491; 87591; 93976; 96361; 96374; 96375; 96376; 99283; J7030; Q9967; A4216; J2405

== ENCOUNTER 2022-02-23 18:57 | Emergency (ER) | payer MEDICAID, SELFPAY ==
[2022-02-23 18:58] VITALS: BP 125/86; PULSE 96; RESP 18; TEMP 36.6; O2SAT 100; BMI 18.6
--- NOTE | 2022-02-23 19:27 | EDS_ITS ---
HPI HPI - Female History of Present Illness Chief Complaint: Vag Bleeding Informant: patient Pain Pain: Positive for Pelvic Pain Context: Gradual Onset Timing: Waxes and wanes Quality: Positive for Cramping Location: LLQ and Suprapubic Worsened by: - (Nothing) Relieved by: - (Nothing) Bleeding Issue: Positive for Vaginal bleeding; Negative for Passing clots or Passing tissue Onset: Month(s) Timing: Continuous Maximum Severity: Heavy Associated Symptoms Associated Symptoms: Negative for Dysuria, Frequency or Urgency Narrative Narrative: Patient presents with heavy vaginal bleeding for the past 8 months. Patient states she has been bleeding frequently since May. Patient states that she has 1 week each month where she does not have any vaginal bleeding. Patient states that today she woke up and her tampon was saturated. Patient states she was having bleeding around her tampon. Patient states that when she removed her tampon this morning there was a large gush of blood. Patient admits to some cramping. Patient states it has been waxing and waning. Patient states that this morning she was using of 2-3 tampons per hour. Patient admits to some generalized weakness and fatigue. Patient denies any dysuria or frequency. Patient admits to some nausea but denies any vomiting. [facility] Medical History ASCUS with positive high risk HPV Depression History of hemorrhoids Home Medications medroxyprogesterone 150 mg/mL intramuscular syringe (Depo-Provera) 150 mg IM Q12W #1 mL 02/20/22 [Rx Last Taken Unknown] aripiprazole 5 mg tablet (Abilify) 5 mg PO DAILY 02/23/22 [History Last Taken Unknown] Allergy/AdvReac Type Severity Reaction Status Date / Time diphenhydramine Allergy Mild Hives Verified 02/23/22 19:13 [From Benadryl] Family History Mother Cancer stage 4 brain cancer Surgical History no surgical history no surgical history Social History current occupational status: employed current occupation: [employer] Smoking Status: Current every day smoker tobacco type: e-cigarettes alcohol intake: never substance use type: does not use caffeine: Yes what type of physical activity do you participate in: walking seatbelt use: always do you feel safe at home: Yes ROS ROS ED Constitutional Constitutional ED: Denies chills or fever(s) Eyes Eyes: Denies blurry vision or change in vision ENT ENT ED: Denies rhinorrhea or sore throat Cardiovascular Cardiovascular: Denies chest pain or palpitations Respiratory/Chest Respiratory/Chest: Denies cough or dyspnea Gastrointestinal Gastrointestinal: Reports nausea; Denies vomiting Genitourinary Genitourinary ED: Denies dysuria or hematuria Musculoskeletal Musculoskeletal: Denies back pain or neck pain Integumentary Denies abscess or rash Neurologic Neurologic: Reports weakness; Denies headache(s) Allergic/Immunologic Allergic/Immunologic ED: Denies mouth swelling or urticaria EXAM Physical Exam Const Vital Signs: 02/23/22 18:58 02/23/22 21:09 Temperature 98 F Temperature Source Temporal Pulse Rate 96 Respiratory Rate 18 16 Blood Pressure 125/86 H Blood Pressure Mean 99 Pulse Ox 100 Oxygen Delivery Method Room Air Positive well nourished and well developed General Appearance ED: well developed HEENT Reports moist mucous membranes Neck supple and no JVD Resp normal respiratory effort and clear to auscultation bilaterally Cardio regular rate, regular rhythm and no murmurs GI normal to inspection, nondistended, normoactive bowel sounds Palpation: soft and tender LLQ and suprapubic Extremity normal to inspection General Extremety ED: Negative for edema or tenderness General Extremity: Negative for edema Neuro oriented x3, CN's II-XII intact bilaterally and no sensory deficits noted Sensorium / Orientation: alert Motor Exam: strength 5/5 throughout Psych mental status grossly normal Skin no rashes or lesions noted MDM MDM MDM Narrative Medical decision making narrative: Patient was given IV fluids. CBC was within normal limits. PT with INR and PTT were within normal limits. Basic metabolic profile was within normal limits. Serum hCG was negative. Urinalysis does not show any evidence of urinary tract infection or hematuria. Patient is feeling better on reevaluation. Patient was advised of her findings. Patient was instructed to follow-up with her EMTS this week as scheduled. Patient states she has an appointment to have her control medications changed. Patient was instructed to return if worse in any way. Patient understood and was agreeable with the plan. All questions were answered. Lab Data Attestation: I reviewed the patient's lab results. Labs: Laboratory Results - last 24 hr 02/23/22 02/23/22 02/23/22 19:43 19:43 19:43 WBC 6.7 RBC 4.55 Hgb 14.3 Hct 40.9 MCV 89.9 MCH 31.4 MCHC 35.0 RDW Std Deviation 41.3 RDW Coeff of Teresita 12.6 Plt Count 273 MPV 8.7 Immature Gran % (Auto) 0.300 Neut % (Auto) 63.5 Lymph % (Auto) 27.4 [place] % (Auto) 6.3 Eos % (Auto) 1.8 Baso % (Auto) 0.7 Absolute Neuts (auto) 4.3 Absolute Lymphs (auto) 1.84 Nucleated RBC % 0 PT 13.6 INR 1.1 APTT 24.7 Sodium 137 Potassium 3.9 Chloride 103 Carbon Dioxide 26.0 Anion Gap 8 BUN 10 Creatinine 0.74 Estim Creat Clear Calc 99.93 Est GFR (MDRD) Af Amer 124 Est GFR (MDRD) Non-Af 102 BUN/Creatinine Ratio 13.5 Glucose 100 Calcium 9.3 Serum , Qual Urine Color Urine Clarity Urine pH Ur Specific [place] Urine Protein Urine Glucose (UA) Urine Ketones Urine Occult Blood Urine Nitrite Urine Bilirubin Urine Urobilinogen Ur Leukocyte Esterase Urine RBC Urine WBC Ur Squamous Epith Cells Urine Bacteria Urine Mucus 02/23/22 02/23/22 19:43 19:47 WBC RBC Hgb Hct MCV MCH MCHC RDW Std Deviation RDW Coeff of Teresita Plt Count MPV Immature Gran % (Auto) Neut % (Auto) Lymph % (Auto) [place] % (Auto) Eos % (Auto) Baso % (Auto) Absolute Neuts (auto) Absolute Lymphs (auto) Nucleated RBC % PT INR APTT Sodium Potassium Chloride Carbon Dioxide Anion Gap BUN Creatinine Estim Creat Clear Calc Est GFR (MDRD) Af Amer Est GFR (MDRD) Non-Af BUN/Creatinine Ratio Glucose Calcium Serum , Qual NEGATIVE Urine Color Straw Urine Clarity Clear Urine pH 6.0 Ur Specific [place] 1.015 Urine Protein Negative Urine Glucose (UA) Normal Urine Ketones Negative Urine Occult Blood 10 H Urine Nitrite Negative Urine Bilirubin Negative Urine Urobilinogen Normal Ur Leukocyte Esterase 25 H Urine RBC 0-5 SEEN Urine WBC 0-5 SEEN Ur Squamous Epith Cells 0-5 SEEN Urine Bacteria 0 SEEN Urine Mucus 0 SEEN Discharge Plan Triage Chief Complaint: Vag Bleeding ED Provider: Josue Benson Dx/Rx/DC Orders Clinical Impression: Menorrhagia with irregular cycle Instructions: ED Dysfunctional Uterine Bleeding Prescriptions: No Action aripiprazole [Abilify] 5 mg Tablet 5 mg PO DAILY medroxyprogesterone [Depo-Provera] 150 mg/mL syringe 150 mg IM Q12W Qty: 1 4RF Primary Care Provider: Care Physician,No Primary Referrals: Tala Capps DO [Med Staff - Active Staff] - Keep [facility] appointment Care Physician,No Primary [Primary Care Provider] - Disposition Disposition: Home, Self Care
[2022-02-23 19:53] LABS: Bacteria 0 SEEN /hpf (None Seen); Mucous, Urine 0 SEEN /hpf (<or=2+)
[2022-02-23 19:55] LABS: Absolute Lymphocyte Count 1.84 X10^3/uL (0.83-4.51); Absolute Neutrophil Count 4.3 X10^3/uL (2.0-7.7); Basophil# 0.05 X10^3/uL; Basophil% 0.7 % (0-1); Eosinophil# 0.12 X10^3/uL; Eosinophils% 1.8 % (0-5); Hematocrit 40.9 % (37-47); Hemoglobin 14.3 g/dL (12.0-15.0); Lymphocyte # 1.84 X10^3/ul (0.83-4.51); Lymphocyte % 27.4 % (19-41); Mean Corpuscular Hgb 31.4 pg (27.0-32.0); Mean Corpuscular Volume 89.9 fL (81-99); Mean Platelet Vol. 8.7 fl (6.2-12.0); Monocyte# 0.42 X10^3/uL; Monocyte% 6.3 % (0-10); NRBC Flagged by Analyzer 0 % (0-5); Neutrophil # 4.26 X10^3/uL (2.7-7.7); Neutrophil % 63.5 % (47-70); Platelet Count 273 K/mm3 (150-450); RBC Distribution Width CV 12.6 % (11.6-14.6); RBC Distribution Width SD 41.3 fl (35.1-43.9); Red Blood Count 4.55 M/mm3 (4.2-5.4); White Blood Count 6.7 K/mm3 (4.4-11.0)
[2022-02-23 19:58] LABS: Color, Urine Straw (Yellow); Glucose, Dipstick Normal (Normal); Ketone-Dipstick Negative (Negative); Leukocyte Esterase-Dipstick 25 /ul (Negative); Nitrite-Dipstick Negative (Negative); Occult Blood-Urine 10 /ul (Negative); Protein-Dipstick Negative (Negative); Specific Gravity, Urine 1.015 (1.002-1.030); Urine Bilirubin Dipstick Negative (Negative); Urine Clarity Clear (Clear); Urine Urobilinogen Normal (Normal)
[2022-02-23 20:04] LABS: Internal QC Validated? YES +Cl - CLEAR BKGD; International Normalized Ratio 1.1; Pregnancy, Serum, hCG Quali. NEGATIVE Negative; Prothrombin Time (Protime)PT. 13.6 SECONDS (11.7-14.9)
[2022-02-23 20:06] LABS: Partial Thromboplast Time 24.7 Seconds (24.1-36.2)
[2022-02-23 20:08] LABS: Anion Gap 8 (5-15); BUN 10 mg/dL (7-18); BUN/Creat Ratio 13.5 RATIO (10-20); Calcium,Total 9.3 mg/dL (8.5-10.1); Chloride 103 mmol/L (98-107); Creatinine, Serum 0.74 mg/dL (0.55-1.02); EST Glomerular Filtration Rate 102 mL/min (>60); Est Glom Filt Rate - Afr Amer 124 mL/min (>60); Estimated Creatinine Clearance 99.93 ml/min; Glucose 100 mg/dL (74-106); Potassium 3.9 mmol/L (3.5-5.1); Sodium Level 137 mmol/L (136-145)
[2022-02-23] MEDS: 0.9% Normal Saline 1,000 ML 1000 ML IV (20:10)
[2022-02-23 20:16] LABS: Red Blood Cells-Urine 0-5 SEEN /hpf (0-5); Squamous Epithelial Cells - UA 0-5 SEEN /hpf (5-10); White Blood Cells 0-5 SEEN /hpf (0-5)
[2022-02-23 21:09] VITALS: RESP 16
== END 2022-02-23 21:32 | disposition home or self-care (01) ==
PROVIDERS: Emergency Provider Emergency Medicine; Visit Provider Emergency Medicine
DX: N92.1 Excessive and frequent menstruation with irregular cycle (principal); N93.9 Abnormal uterine and vaginal bleeding, unspecified; F17.290 Nicotine dependence, other tobacco product, uncomplicated
CPT/HCPCS: 80048; 81001; 84703; 85025; 85610; 85730; 96360; 99282; J7030; A4216

== ENCOUNTER → 2022-02-25 | Outpatient (CLI) | payer MEDICAID, SELFPAY ==
[2022-02-25 11:33] LABS: Hematocrit 38.6 % (37-47); Hemoglobin 13.5 g/dL (12.0-15.0); Mean Corpuscular Hgb 31.5 pg (27.0-32.0); Mean Platelet Vol. 8.6 fl (6.2-12.0); Platelet Count 242 K/mm3 (150-450); RBC Distribution Width CV 12.8 % (11.6-14.6); RBC Distribution Width SD 41.9 fl (35.1-43.9); Red Blood Count 4.29 M/mm3 (4.2-5.4); White Blood Count 5.3 K/mm3 (4.4-11.0)
[2022-02-25 12:01] LABS: AST(SGOT) 6 U/L (15-37); Alanine Aminotransfer ALT/SGPT 16 U/L (13-56); Albumin, Serum 3.9 g/dL (3.2-5.0); Alkaline Phosphatase 45 U/L (45-117); Anion Gap 6 (5-15); BUN 11 mg/dL (7-18); BUN/Creat Ratio 11.8 RATIO (10-20); Calcium,Total 9.3 mg/dL (8.5-10.1); Chloride 107 mmol/L (98-107); Creatinine, Serum 0.93 mg/dL (0.55-1.02); EST Glomerular Filtration Rate 79 mL/min (>60); Est Glom Filt Rate - Afr Amer 95 mL/min (>60); Globulin 4.1 g/dL (2.2-4.2); Glucose 93 mg/dL (74-106); Potassium 3.6 mmol/L (3.5-5.1); Sodium Level 141 mmol/L (136-145); T4 Free Direct 1.15 ng/dL (0.76-1.46); Thyroid Stim Hormone (TSH) 1.93 uIU/mL (0.358-3.74)
[2022-02-25 12:33] LABS: Vitamin D,25 Hydroxy 16.6 ng/mL
== END | disposition home or self-care (01) ==
PROVIDERS: PCP Nurse Practitioner Family; Referring Provider Nurse Practitioner Family; Visit Provider Nurse Practitioner Family
DX: F41.1 Generalized anxiety disorder (principal); R53.82 Chronic fatigue, unspecified; Z62.810 Personal history of physical and sexual abuse in childhood
CPT/HCPCS: 36415; 80053; 82306; 84439; 84443; 85027

== ENCOUNTER → 2023-12-16 | Outpatient (CLI) | payer MEDICAID, SELFPAY ==
[2023-12-16 13:04] LABS: hCG Titer Quant., Serum 176 mIU/mL (1-3)
== END | disposition home or self-care (01) ==
LOC: LAB 11:59
PROVIDERS: PCP Nurse Practitioner Family; Referring Provider Advanced Practice Midwife; Visit Provider Advanced Practice Midwife
DX: Z34.90 Encounter for supervision of normal pregnancy, unspecified, unspecified trimester (principal)
CPT/HCPCS: 36415; 84702; 86850; 86900; 86901

== ENCOUNTER → 2023-12-19 | Outpatient (CLI) | payer MEDICAID, SELFPAY ==
[2023-12-19 12:36] LABS: hCG Titer Quant., Serum 661 mIU/mL (1-3)
== END | disposition home or self-care (01) ==
LOC: LAB 11:23
PROVIDERS: Advanced Practice Midwife; PCP Nurse Practitioner Family; Referring Provider Obstetrics & Gynecology; Visit Provider Obstetrics & Gynecology
DX: Z34.90 Encounter for supervision of normal pregnancy, unspecified, unspecified trimester (principal)
CPT/HCPCS: 36415; 84702

== ENCOUNTER → 2024-01-14 | Outpatient (CLI) | payer MEDICAID, SELFPAY ==
[2024-01-19 03:07] LABS: Chlamydia By Nucleic Acid AMP Negative (Negative); Gonococcus By Nucleic Acid AMP Negative (Negative)
[2024-01-20 09:38] LABS: HPV Reflexed? NOT INDICATED
== END | disposition home or self-care (01) ==
PROVIDERS: PCP Nurse Practitioner Family; Referring Provider Advanced Practice Midwife; Visit Provider Advanced Practice Midwife
DX: Z34.90 Encounter for supervision of normal pregnancy, unspecified, unspecified trimester (principal); Z12.4 Encounter for screening for malignant neoplasm of cervix
CPT/HCPCS: 87086; 87491; 87591; 88175; G0145

== ENCOUNTER → 2024-01-26 | Outpatient (CLI) | payer MEDICAID, SELFPAY ==
[2024-01-26 12:16] LABS: Absolute Lymphocyte Count 1.44 X10^3/uL (0.83-4.51); Absolute Neutrophil Count 3.3 X10^3/uL (2.0-7.7); Basophil# 0.04 X10^3/uL; Basophil% 0.8 % (0-1); Eosinophils% 1.9 % (0-5); Hematocrit 37.2 % (37-47); Hemoglobin 12.7 g/dL (12.0-15.0); Lymphocyte # 1.44 X10^3/ul (0.83-4.51); Lymphocyte % 27.1 % (19-41); Mean Corp Hgb Conc 34.1 g/dL (32-36); Mean Corpuscular Hgb 30.6 pg (27.0-32.0); Mean Corpuscular Volume 89.6 fL (81-99); Mean Platelet Vol. 8.8 fl (6.2-12.0); Monocyte# 0.39 X10^3/uL; Monocyte% 7.3 % (0-10); NRBC Flagged by Analyzer 0 % (0-5); Neutrophil # 3.33 X10^3/uL (2.7-7.7); Neutrophil % 62.7 % (47-70); Platelet Count 253 K/mm3 (150-450); RBC Distribution Width CV 12.1 % (11.6-14.6); RBC Distribution Width SD 39.6 fl (35.1-43.9); Red Blood Count 4.15 M/mm3 (4.2-5.4); White Blood Count 5.3 K/mm3 (4.4-11.0)
[2024-01-26 13:20] LABS: HIV - WCH Non-Reactive (Nonreactive); Hepatitis B Surface Antigen Non-Reactive (Nonreactive); Hepatitis C Antibody Non-Reactive (Nonreactive); Rubella IgG Reactive (Nonreactive); Syphilis Antibodies Non-reactive
== END | disposition home or self-care (01) ==
LOC: LAB 10:47
PROVIDERS: PCP Nurse Practitioner Family; Referring Provider Advanced Practice Midwife; Visit Provider Advanced Practice Midwife
DX: Z34.90 Encounter for supervision of normal pregnancy, unspecified, unspecified trimester (principal)
CPT/HCPCS: 36415; 85025; 86703; 86762; 86780; 86803; 86850; 86900; 86901; 87340

== ENCOUNTER 2024-04-28 18:08 | Outpatient (CLI) | payer MEDICAID, SELFPAY ==
[2024-04-28] VITALS (7 sets, daily range): BP systolic 117–143; BP diastolic 70–86; PULSE 77–86; RESP 16; TEMP 36.6–37.2; O2SAT 100; BMI 21.6
[2024-04-28 18:49] LABS: Color, Urine Yellow (Yellow); Glucose, Dipstick Normal (Normal); Leukocyte Esterase-Dipstick 100 /ul (Negative); Nitrite-Dipstick Negative (Negative); Occult Blood-Urine Negative /ul (Negative); Protein-Dipstick 15 mg/dl (Negative); Specific Gravity, Urine 1.015 (1.002-1.030); Urine Bilirubin Dipstick Negative (Negative); Urine Clarity Sl. Cloudy (Clear); Urine Urobilinogen Normal (Normal)
[2024-04-28 18:57] LABS: Ketone-Dipstick 150 mg/dl (Negative)
[2024-04-28] MEDS: Lactated Ringers 500 ML 999 ML IV (19:47)
[2024-04-28] MEDS: Phenazopyridine 95 MG Tablet PO (21:34)
[2024-04-28] MEDS: Nitrofurantoin Macrocrystals 100 MG Capsule PO (21:34)
--- NOTE | 2024-05-06 08:28 | OB.TRI.HP_ITS ---
HPI - General General Date of Service: 04/28/24 Chief Complaint: abdominal pain HPI Narrative KINZA CRUZ, is a 28 F who presents at 23.2 with sharp abdominal pain, increased urination and urgency Maternal Data Information BETSY Calculator Estimated Delivery Date Method Current WG Current Estimate 08/23/24 LMP (Uncertain) 24w 3d Other Estimates 08/23/24 Ultrasound #1 24w 3d PFSH PFSH Medical History Anxiety Encounter for insertion of subdermal contraceptive Menorrhagia with irregular cycle Encounter for Nexplanon removal Contraceptive management Gastroenteritis Early stage of History of hemorrhoids ASCUS with positive high risk HPV Depression Home Medications ?Medication ?Instructions ?Recorded ?Last Taken ?Type docosahexaenoic acid 200 mg 1 mg PO DAILY 01/08/24 Unknown History capsule ( DHA) Allergy/AdvReac Type Severity Reaction Status Date / Time diphenhydramine (From Allergy Mild Hives Verified 05/03/24 10:24 Benadryl) Family History Mother Cancer stage 4 brain cancer Grandmother CVA (cerebral vascular accident) Myocardial infarction Grandmother CVA (cerebral vascular accident) Myocardial infarction Surgical History History of placement of ear tubes Social History adopted: No household members: significant other and children number of children: 1 current occupational status: unemployed current occupation: [employer] current occupational exposures/hazards: No pets and animals: No history of recent travel: No sexually active: Yes Smoking Status: Former smoker how long ago did patient quit smokin week alcohol intake: current alcohol intake frequency: holidays/special occasions only details: Not while substance use type: does not use diet: lactose free well-balanced diet: rarely or never caffeine: Yes eating out: 1-3 times/week during the past year weight has: remained stable what type of physical activity do you participate in: none seatbelt use: always do you feel safe at home: Yes additional social history: Boyfriend: Cheko Briseno - multi craft maintenance technician History 3 Elective abortions Hx Para 1 Spontaneous abortions 1 Hx # Term Pregnancies Ectopic pregnancies Hx # Pregnancies Multiple births # of living children 1 Past Pregnancies Del. Date Name GA/Weeks Outcome Route Bth Weight Infant Gen Labor Lgth Anesthesia Del Davonteatn Provider FOB 06/29/19 Nova 40 live - full term 6lbs 14oz Female e pidural [facility] Dr. Ai Salas Delivery Date: 06/29/19 Last Updated by: Jessie Monte 2nd degree tear Visit Details Expected Delivery Route/Plan Labor Preferences- CB/BF classes: [] labor support person: [] labor intervention preferences: [] pain management options preferred: [] cut cord/dad catch: [] : [] PP control planned: [] discussed possible routes of delivery and associated risks: [] special requests: [] Plans Covid status: [] Flu vaccine: [] Tdap vaccine: [] Rhogam: [] LARC form signed: [] Problem list reviewed and updated with the most current plan of care details and appropriate orders placed. Relevant counseling for the gestational age provided. Continue routine care and follow up unless otherwise noted in visit notes/problem list details OB Flowsheet Initial Weight: 129 lb Date -?-?-?-?-?-?-?-?-?-?-?-?- EGA Weight BP Urine Prot -?-?-?-?-?-?-?-?-?-?-?-?- Glucose FHR FuHt Pres Dilation -?-?-?-?-?-?-?-?-?-?-?-?- Effaced St Visit Note 01/14/24 -?-?-?-?-?-?-?-?-?-?-?-?- 8w 2d 129 lb (+0 oz) 133/84 -?-?-?-?-?-?-?-?-?-?-?-?- 156 -?-?-?-?-?-?-?-?-?-?-?-?- KW- CRL cons wit h dates. NIPT accepted 02/11/24 -?-?-?-?-?-?-?-?-?-?-?-?- 12w 2d 133 lb (+4 lb) 134/86 Negative -?-?-?-?-?-?-?-?-?-?-?-?- Negative 150 -?-?-?-?-?-?-?-?-?-?-?-?- SM- brown spotjose manuel ng no crmaping 03/08/24 -?-?-?-?-?-?-?--?-?-?-?-?- 16w 0d 133 lb 4 oz (+4 lb 4 oz) 125/81 Negative -?-?-?-?-?-?-?-?-?-?-?-?- Negative 135 -?-?-?-?-?-?-?-?-?-?-?-?- KW- no vb/crampi ng. US scheduled. 04/05/24 -?-?-?-?-?-?-?-?-?-?-?-?- 20w 0d 136 lb (+7 lb) 114/82 Negative -?-?-?-?-?-?-?-?-?-?-?-?- Negative 142 -?-?-?-?-?-?-?-?-?-?-?-?- MH-NO VB. Good movement. Re viewed low lying placenta and anatomy US. Flu vaccine given 05/03/24 -?-?-?-?-?-?-?-?-?-?-?-?- 24w 0d 139 lb (+10 lb) 117/73 Trace -?-?-?-?-?-?-?-?-?-?-?-?- Negative 144 24 0 -?-?-?-?-?-?-?-?-?-?-?-?- JV- pt was on L& D 04/28/23 for cramping. Thinks part of mucous plug came out. was sexually active prior to her contraction onset. She is no longer vaping. but uses caffeine often. Recommend avoiding intercourse especially until after her rpt scan is performed for placental position, avoid stimulants. JV- pt was on L&D 04/28/23 for cramping. Thinks part of mucous plug came out. was sexually active prior to her contraction onset. She is no longer vaping. but uses caffeine often. Recommend avoiding intercourse especially until after her rpt scan is performed for placental position, avoid stimulants. vaginitis smear collected. Urine culture was negative. stop abx. NST FHR Rate Baby A Baseline: 130 Variability:: Moderate Decelerations:: None Uterine Activity:: none Assessment & Plan (1) UTI (urinary tract infection): COMMENT: urine dip consistent with UTI, macrobid started. PLAN: macrobid x7 days, culture pending. PLAN: Plan Patient presents for triage evaluation secondary to lower abdominal pain with UTI symptoms. FHT: Moderate variability reactive no decelerations category I tracing Hanson: no Contractions Assessment and plan: Reactive NST, reassuring maternal and status patient discharged to home to follow-up in office. See problem list details for additional plan information. Charges/Coding Multi Select Codes Urinary/Genital Urinary/Genital CPT Codes: 35876-69 non-stress test Interp
== END 2024-04-28 22:05 | disposition home or self-care (01) ==
LOC: WPOUT 18:14 → WP 18:14
PROVIDERS: PCP Nurse Practitioner Family; Referring Provider Registered Nurse; Visit Provider Registered Nurse
DX: O23.42 Unspecified infection of urinary tract in pregnancy, second trimester (principal); Z3A.24 24 weeks gestation of pregnancy; Z87.891 Personal history of nicotine dependence
CPT/HCPCS: 96360; 59025; 59050; 81002; 87086; 87088; 99221; G0378

== ENCOUNTER → 2024-05-03 | Outpatient (CLI) | payer MEDICAID, SELFPAY | END | disposition home or self-care (01) | LOC: BWCLAB 11:54 | PROVIDERS: PCP Nurse Practitioner Family; Referring Provider Obstetrics & Gynecology; Visit Provider Obstetrics & Gynecology | DX: R10.2 Pelvic and perineal pain (principal) | CPT/HCPCS: 87070; 87205 ==

== ENCOUNTER → 2024-05-31 | Outpatient (CLI) | payer MEDICAID, SELFPAY ==
[2024-05-31 11:10] LABS: Absolute Lymphocyte Count 1.38 X10^3/uL (0.83-4.51); Absolute Neutrophil Count 5.4 X10^3/uL (2.0-7.7); Basophil# 0.03 X10^3/uL; Basophil% 0.4 % (0-1); Eosinophil# 0.05 X10^3/uL; Eosinophils% 0.7 % (0-5); Hematocrit 35.5 % (37-47); Hemoglobin 11.8 g/dL (12.0-15.0); Lymphocyte # 1.38 X10^3/ul (0.83-4.51); Lymphocyte % 18.9 % (19-41); Mean Corp Hgb Conc 33.2 g/dL (32-36); Mean Corpuscular Hgb 29.9 pg (27.0-32.0); Mean Corpuscular Volume 89.9 fL (81-99); Mean Platelet Vol. 9.4 fl (6.2-12.0); Monocyte# 0.38 X10^3/uL; Monocyte% 5.2 % (0-10); NRBC Flagged by Analyzer 0 % (0-5); Neutrophil # 5.42 X10^3/uL (2.7-7.7); Neutrophil % 74.1 % (47-70); Platelet Count 241 K/mm3 (150-450); RBC Distribution Width CV 12.5 % (11.6-14.6); RBC Distribution Width SD 40.6 fl (35.1-43.9); Red Blood Count 3.95 M/mm3 (4.2-5.4); White Blood Count 7.3 K/mm3 (4.4-11.0)
[2024-05-31 11:24] LABS: Glucose Challenge Gest 1H 50g 115 mg/dL (70-140)
[2024-05-31 11:59] LABS: HIV - WCH Non-Reactive (Nonreactive); Syphilis Antibodies Non-reactive
== END | disposition home or self-care (01) ==
LOC: BWCLAB 09:43
PROVIDERS: PCP Nurse Practitioner Family; Referring Provider Obstetrics & Gynecology; Visit Provider Obstetrics & Gynecology
DX: O09.92 Supervision of high risk pregnancy, unspecified, second trimester (principal); Z13.1 Encounter for screening for diabetes mellitus; Z3A.00 Weeks of gestation of pregnancy not specified
CPT/HCPCS: 36415; 82950; 85025; 86703; 86780

== ENCOUNTER → 2024-06-03 | Outpatient (CLI) | payer MEDICAID, SELFPAY ==
--- NOTE | 2024-06-03 10:59 | US_ITS ---
PROCEDURE: ultrasound. REASON FOR EXAM: well-being COMPARISON: 01/14/2024 FINDINGS Single live intrauterine gestation in cephalic presentation. heart rate 155 beats per minute. Amniotic fluid index 13.5 cm. The placenta is posterior. No evidence of placenta previa. The cervix is 3.9 cm, closed. No gross anomalies are demonstrated. Biparietal diameter 7.4 cm. Head circumference 27.8 cm. Abdominal circumference 24.7 cm. Femur length 5.2 cm. Estimated weight 1264 g +/-190 g, at the 46 percentile. Facial features are intact. cord insertion and three-vessel cord are not evaluated. Limited cardiac evaluation. US/OB Limited With Biometrics IMPRESSION: Single live intrauterine gestation in cephalic presentation. Estimated gestati onal age 28 weeks, 3 days. Estimated date of confinement 08/23/2024. No gross anomalies are demonstrated. Amniotic fluid index 13.5 cm. Posterior placenta, without evidence of placenta previa. Reading Location: [facility]
== END | disposition home or self-care (01) ==
LOC: US 10:59
PROVIDERS: PCP Nurse Practitioner Family; Referring Provider Nurse Practitioner Women's Health; Visit Provider Nurse Practitioner Women's Health
DX: O44.40 Low lying placenta NOS or without hemorrhage, unspecified trimester (principal); Z3A.00 Weeks of gestation of pregnancy not specified
CPT/HCPCS: 76816

== ENCOUNTER 2024-06-12 23:55 | Outpatient (CLI) | payer MEDICAID, SELFPAY ==
[2024-06-13] VITALS (10 sets, daily range): BP systolic 106–139; BP diastolic 60–83; PULSE 82–117; RESP 14–16; TEMP 36.6–37.2; O2SAT 96–99; BMI 22.8
--- NOTE | 2024-06-13 01:03 | US_ITS ---
EXAM: US Second or Third Trimester , Transabdominal and Transvaginal CLINICAL INDICATION: TECHNIQUE: Real-time transabdominal and endovaginal obstetrical ultrasound of the maternal pelvis and a second or third trimester with image documentation. Endovaginal imaging was used for better evaluation of the fetus and adnexa. COMPARISON: No relevant prior studies available. FINDINGS: FETUS: HEART RATE: heart rate 137 beats per minute. PRESENTATION: Cephalic presentation. PLACENTA: Grade 1 placenta. Placenta is posterior and not low-lying. No abruption. AMNIOTIC FLUID: ZAIRA 10.1 cm. ANATOMY: Intracranial/face anatomy not seen. Spinal anatomy not seen. Abdominal anatomy not seen. Extremities not seen. Four-chamber heart not seen. Umbilical cord not seen. MATERNAL: UTERUS: Unremarkable. No myometrial mass. CERVIX: Cervical length 3.5 cm. FREE FLUID: No free fluid. US/OB Limited (No Biometrics) IMPRESSION: Placenta is posterior and not low-lying. Reading Location: [facility]
[2024-06-13 01:13] LABS: Absolute Neutrophil Count 6.4 X10^3/uL (2.0-7.7); Basophil# 0.04 X10^3/uL; Basophil% 0.4 % (0-1); Eosinophil# 0.06 X10^3/uL; Eosinophils% 0.6 % (0-5); Hematocrit 33.6 % (37-47); Hemoglobin 11.2 g/dL (12.0-15.0); Lymphocyte % 22.5 % (19-41); Mean Corp Hgb Conc 33.3 g/dL (32-36); Mean Corpuscular Hgb 29.6 pg (27.0-32.0); Mean Corpuscular Volume 88.7 fL (81-99); Mean Platelet Vol. 9.2 fl (6.2-12.0); Monocyte# 0.68 X10^3/uL; Monocyte% 7.3 % (0-10); NRBC Flagged by Analyzer 0 % (0-5); Neutrophil # 6.43 X10^3/uL (2.7-7.7); Neutrophil % 68.9 % (47-70); Platelet Count 220 K/mm3 (150-450); RBC Distribution Width CV 12.4 % (11.6-14.6); RBC Distribution Width SD 39.4 fl (35.1-43.9); Red Blood Count 3.79 M/mm3 (4.2-5.4); White Blood Count 9.3 K/mm3 (4.4-11.0)
[2024-06-13 01:51] LABS: Fibrinogen 532 mg/dl (203-444)
[2024-06-13] MEDS: Betamethasone/Betamethasone 30 MG/5 ML Vial 12 MG IM (06:52)
[2024-06-13 07:07] LABS: Mucous, Urine 0 SEEN /hpf (<or=2+)
[2024-06-13 07:18] LABS: Color, Urine Yellow (Yellow); Glucose, Dipstick Normal (Normal); Ketone-Dipstick Negative (Negative); Leukocyte Esterase-Dipstick 25 /ul (Negative); Nitrite-Dipstick Negative (Negative); Occult Blood-Urine 250 /ul (Negative); Protein-Dipstick 15 mg/dl (Negative); Urine Bilirubin Dipstick Negative (Negative); Urine Clarity Sl. Cloudy (Clear); Urine Urobilinogen Normal (Normal); Urine pH 6.5 (5.0 - 8.0)
[2024-06-13 07:26] LABS: Absolute Lymphocyte Count 1.99 X10^3/uL (0.83-4.51); Absolute Neutrophil Count 3.5 X10^3/uL (2.0-7.7); Basophil# 0.03 X10^3/uL; Basophil% 0.5 % (0-1); Eosinophil# 0.05 X10^3/uL; Eosinophils% 0.8 % (0-5); Hemoglobin 10.5 g/dL (12.0-15.0); Lymphocyte # 1.99 X10^3/ul (0.83-4.51); Lymphocyte % 32.2 % (19-41); Mean Corp Hgb Conc 32.8 g/dL (32-36); Mean Corpuscular Hgb 29.2 pg (27.0-32.0); Mean Corpuscular Volume 88.9 fL (81-99); Mean Platelet Vol. 9.1 fl (6.2-12.0); Monocyte# 0.62 X10^3/uL; NRBC Flagged by Analyzer 0 % (0-5); Neutrophil # 3.47 X10^3/uL (2.7-7.7); Neutrophil % 56.2 % (47-70); Platelet Count 201 K/mm3 (150-450); RBC Distribution Width CV 12.2 % (11.6-14.6); RBC Distribution Width SD 39.4 fl (35.1-43.9); White Blood Count 6.2 K/mm3 (4.4-11.0)
[2024-06-13 07:33] LABS: Red Blood Cells-Urine 25-50 SEEN /hpf (0-5); Squamous Epithelial Cells - UA 5-10 SEEN /hpf (5-10); White Blood Cells 0-5 SEEN /hpf (0-5)
[2024-06-13 07:34] LABS: Bacteria 3+ /hpf (None Seen)
[2024-06-13 08:07] LABS: Fibrinogen 460 mg/dl (203-444)
--- NOTE | 2024-06-13 17:24 | OB.TRI.HP_ITS ---
HPI - General HPI Narrative KINZA CRUZ, is a 28 F who presents with episode of vaginal bleeding. Patient denies any cramping or regular contractions she had has not had intercourse in the last 24 hours. She has had an uncomplicated and has a history of previous vaginal term delivery. Previously she had a low-lying placenta but it did resolve. Patient states the amount of bleeding was just when wiping she denies any clots or any bleeding on her pants or underwear. Maternal Data Information BETSY Calculator Estimated Delivery Date Method Current WG Current Estimate 08/23/24 LMP (Uncertain) 30w 0d Other Estimates 08/23/24 Ultrasound #1 30w 0d PFSH PFSH Medical History Anxiety History of hemorrhoids ASCUS with positive high risk HPV Depression Home Medications ?Medication ?Instructions ?Recorded ?Last Taken ?Type docosahexaenoic acid 200 mg 1 mg PO DAILY Unknown History capsule ( DHA) Allergy/AdvReac Type Severity Reaction Status Date / Time diphenhydramine (From Allergy Mild Hives Verified 06/13/24 00:14 Benadryl) Family History Mother Cancer stage 4 brain cancer Grandmother CVA (cerebral vascular accident) Myocardial infarction Grandmother CVA (cerebral vascular accident) Myocardial infarction Surgical History History of placement of ear tubes Social History adopted: No household members: significant other and children number of children: 1 current occupational status: unemployed current occupation: [employer] current occupational exposures/hazards: No pets and animals: No history of recent travel: No sexually active: Yes Smoking Status: Former smoker how long ago did patient quit smokin week alcohol intake: current alcohol intake frequency: holidays/special occasions only details: Not while substance use type: does not use diet: lactose free well-balanced diet: rarely or never caffeine: Yes eating out: 1-3 times/week during the past year weight has: remained stable what type of physical activity do you participate in: none seatbelt use: always do you feel safe at home: Yes additional social history: Boyfriend: Cheko Briseno - aircraft maintenance engineer History 3 Elective abortions Hx Para 1 Spontaneous abortions 1 Hx # Term Pregnancies Ectopic pregnancies Hx # Pregnancies Multiple births # of living children 1 Past Pregnancies Del. Date Name GA/Weeks Outcome Route Bth Weight Gen Labor Lgth Anesthesia Del Locatn Provider FOB 06/29/19 Nova 40 live - full term 6lbs 14oz Female e pidural [facility] Dr. Ai Salas Delivery Date: 06/29/19 Last Updated by: Jessie Monte 2nd degree tear Visit Details Expected Delivery Route/Plan Labor Preferences- CB/BF classes: no labor support person: Cheko labor intervention preferences: [] pain management options preferred: epidural cut cord/dad catch: mom : no PP control planned: discussed discussed possible routes of delivery and associated risks: [] special requests: [] Plans Covid status: [] Flu vaccine: [] Tdap vaccine: [] Rhogam: NA LARC form signed: yes Problem list reviewed and updated with the most current plan of care details and appropriate orders placed. Relevant counseling for the gestational age provided. Continue routine care and follow up unless otherwise noted in visit notes/problem list details OB Flowsheet Initial Weight: 129 lb Date -?-?-?-?-?-?-?-?-?-?-?-?- EGA Weight BP Urine Prot -?-?-?-?-?-?-?-?-?-?-?-?- Glucose FHR FuHt Pres Dilation -?-?-?-?-?-?-?-?-?-?-?-?- Effaced St Visit Note 01/14/24 -?-?-?-?-?-?-?-?-?-?-?-?- 8w 2d 129 lb (+0 oz) 133/84 -?-?-?-?-?-?-?-?-?-?-?-?- 156 -?-?-?-?-?-?-?-?-?-?-?-?- KW- CRL cons wit h dates. NIPT accepted 02/11/24 -?-?-?-?-?-?-?-?-?-?-?-?- 12w 2d 133 lb (+4 lb) 134/86 Negative -?-?-?-?-?-?-?-?-?-?-?-?- Negative 150 -?-?-?-?-?-?-?-?-?-?-?-?- SM- brown spotti ng no crmaping 03/08/24 -?-?-?-?-?-?-?-?-?-?-?-?- 16w 0d 133 lb 4 oz (+4 lb 4 oz) 125/81 Negative -?-?-?-?-?-?-?-?-?-?-?-?- Negative 135 -?-?-?-?-?-?-?-?-?-?-?-?- KW- no vb/crampi ng. US scheduled. 04/05/24 -?-?-?-?-?-?-?-?-?-?-?-?- 20w 0d 136 lb (+7 lb) 114/82 Negative -?-?-?-?-?-?-?-?-?-?-?-?- Negative 142 -?-?-?-?-?-?-?-?-?-?-?-?- MH-NO VB. Good movement. Re viewed low lying placenta and anatomy US. Flu vaccine given 05/03/24 -?-?-?-?-?-?-?-?-?-?-?-?- 24w 0d 139 lb (+10 lb) 117/73 Trace -?-?-?-?-?-?-?-?-?-?-?-?- Negative 144 24 0 -?-?-?-?-?-?-?-?-?-?-?-?- JV- pt was on L& D 04/28/23 for cramping. Thinks part of mucous plug came out. was sexually active prior to her contraction onset. She is no longer vaping. but uses caffeine often. Recommend avoiding intercourse especially until after her rpt scan is performed for placental position, avoid stimulants. JV- pt was on L&D 04/28/23 for cramping. Thinks part of mucous plug came out. was sexually active prior to her contraction onset. She is no longer vaping. but uses caffeine often. Recommend avoiding intercourse especially until after her rpt scan is performed for placental position, avoid stimulants. vaginitis smear collected. Urine culture was negative. stop abx. 05/31/24 -?-?-?-?-?-?-?-?-?-?-?-?- 28w 0d 145 lb (+16 lb) 110/70 Negative -?-?-?-?-?-?-?-?-?-?-?-?- Negative 136 27 -?-?-?-?-?-?-?-?-?-?-?-?- MH-No VB, LOF. Noting more issue with hemorrhoid/blood with BM. Enc stool softener. Larc. 28 wk labs ROS Constitutional Constitutional: Reports systems reviewed and no addt'l complaints, except as documented Eyes Eyes: Denies change in vision ENT HEENT: Reports systems reviewed and no addt'l complaints, except as documented; Denies headache(s) Cardiovascular Cardiovascular: Reports systems reviewed and no addt'l complaints, except as documented; Denies chest pain or dyspnea Respiratory/Chest Respiratory/Chest: Reports systems reviewed and no addt'l complaints, except as documented Gastrointestinal Gastrointestinal: Reports systems reviewed and no addt'l complaints, except as documented; Denies abdominal pain Genitourinary Genitourinary: Reports systems reviewed and no addt'l complaints, except as documented, contractions Details: present (irregular) and movement Details: present; Denies dysuria or genital lesions Musculoskeletal Musculoskeletal: Reports systems reviewed and no addt'l complaints, except as documented Neurologic Neurologic: Reports systems reviewed and no addt'l complaints, except as documented Endocrine Endocrinology: Reports systems reviewed and no addt'l complaints, except as documented Physical Exam Const alert, oriented x3, no apparent distress and healthy appearing HEENT normocephalic and moist oral mucous membranes Head and Scalp: atraumatic Neck full ROM, no lymphadenopathy, supple and thyroid normal General: trachea midline Lymph Lymphatic: no lymphadenopathy noted Chest inspection of chest normal Resp normal respiratory effort Cardio regular rate GI soft to palpation and non-tender GI Narrative: gravid Inspection: gravid external exam normal Manual OB Exam: estimated gestational size appropriate, presentation cephalic, dilated 0, effaced and station Extremity normal to inspection General Extremity: Negative for edema Skin no rashes or lesions noted Neuro no focal motor deficits and deep tendon reflexes 2+ bilaterally Motor Exam: strength 5/5 throughout and clonus absent Psych mental status grossly normal NST FHR Rate Baby A Baseline: 130 Variability:: Moderate Accelerations:: 15 x 15 Decelerations:: None NST Reactive:: Yes FHR Category:: Category I Uterine Activity:: irregular Assessment & Plan (1) ASCUS with positive high risk HPV: COMMENT: 2023-neg (2) Scoliosis: QUALIFIERS: Scoliosis type: unspecified scoliosis Spinal region: unspecified Qualified Code(s): M41.9 - Scoliosis, unspecified (3) : QUALIFIERS: Weeks of gestation: 28 weeks Qualified Code(s): Z3A.28 - 28 weeks gestation of COMMENT: 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 Culture negative (7) Vaginal bleeding during : COMMENT: Admitted June 13 given course of steroids serial labs monitored ultrasound within normal limits PLAN: Plan See problem list comments. Admit and give course of steroids short-term observation. Charges/Coding Multi Select Codes Visit Charges Observation E&M Codin Initial observation care L3 Urinary/Genital Urinary/Genital CPT Codes: 15845-15 non-stress test Interp
[2024-06-13] MEDS: Acetaminophen 500 MG Tablet 1000 MG PO (17:50)
[2024-06-14 03:08] VITALS: BP 115/73; PULSE 89
[2024-06-14 03:09] VITALS: RESP 16; TEMP 37.2; O2SAT 99
--- NOTE | 2024-06-14 05:56 | OB.TRI.HP_ITS ---
HPI - General HPI Narrative KINZA CRUZ, is a 28 F who presents with vaginal bleeding in . Patient monitored overnight with only small brown discharge no significant bleeding no regular contractions patient stable overnight. Patient complained of some back pain due to the bed. Maternal Data Information BETSY Calculator Estimated Delivery Date Method Current WG Current Estimate 08/23/24 LMP (Uncertain) 30w 0d Other Estimates 08/23/24 Ultrasound #1 30w 0d PFSH PFSH Medical History Anxiety History of hemorrhoids ASCUS with positive high risk HPV Depression Home Medications ?Medication ?Instructions ?Recorded ?Last Taken ?Type docosahexaenoic acid 200 mg 1 mg PO DAILY Unknown History capsule ( DHA) Allergy/AdvReac Type Severity Reaction Status Date / Time diphenhydramine (From Allergy Mild Hives Verified 06/13/24 00:14 Benadryl) Family History Mother Cancer stage 4 brain cancer Grandmother CVA (cerebral vascular accident) Myocardial infarction Grandmother CVA (cerebral vascular accident) Myocardial infarction Surgical History History of placement of ear tubes Social History adopted: No household members: significant other and children number of children: 1 current occupational status: unemployed current occupation: [employer] current occupational exposures/hazards: No pets and animals: No history of recent travel: No sexually active: Yes Smoking Status: Former smoker how long ago did patient quit smokin week alcohol intake: current alcohol intake frequency: holidays/special occasions only details: Not while substance use type: does not use diet: lactose free well-balanced diet: rarely or never caffeine: Yes eating out: 1-3 times/week during the past year weight has: remained stable what type of physical activity do you participate in: none seatbelt use: always do you feel safe at home: Yes additional social history: Boyfriend: Cheko Briseno - maintenance of 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 Date Name GA/Weeks Outcome Route Bth Weight Infant Gen Labor Lgth Anesthesia Del Davonteatn Provider FOB 06/29/19 Nova 40 live - full term 6lbs 14oz Female e pidural [facility] Dr. Ai Salas Delivery Date: 06/29/19 Last Updated by: Jessie Monte 2nd degree tear Visit Details Expected Delivery Route/Plan Labor Preferences- CB/BF classes: no labor support person: Cheko labor intervention preferences: [] pain management options preferred: epidural cut cord/dad catch: mom : no PP control planned: discussed discussed possible routes of delivery and associated risks: [] special requests: [] Plans Covid status: [] Flu vaccine: [] Tdap vaccine: [] Rhogam: NA LARC form signed: yes Problem list reviewed and updated with the most current plan of care details and appropriate orders placed. Relevant counseling for the gestational age provided. Continue routine care and follow up unless otherwise noted in visit notes/problem list details OB Flowsheet Initial Weight: 129 lb Date -?-?-?-?-?-?-?-?-?-?-?-?- EGA Weight BP Urine Prot -?-?-?-?-?-?-?-?-?-?-?-?- Glucose FHR FuHt Pres Dilation -?-?-?-?-?-?-?-?-?-?-?-?- Effaced St Visit Note 01/14/24 -?-?-?-?-?-?-?-?-?-?-?-?- 8w 2d 129 lb (+0 oz) 133/84 -?-?-?-?-?-?-?-?-?-?-?-?- 156 -?-?-?-?-?-?-?-?-?-?-?-?- KW- CRL cons wit h dates. NIPT accepted 02/11/24 -?-?-?-?-?-?-?-?-?-?-?-?- 12w 2d 133 lb (+4 lb) 134/86 Negative -?-?-?-?-?-?-?-?-?-?-?-?- Negative 150 -?-?-?-?-?-?-?-?-?-?-?-?- SM- brown spotti ng no crmaping 03/08/24 -?-?-?-?-?-?-?-?-?-?-?-?- 16w 0d 133 lb 4 oz (+4 lb 4 oz) 125/81 Negative -?-?-?-?-?-?-?-?-?-?-?-?- Negative 135 -?-?-?-?-?-?-?-?-?-?-?-?- KW- no vb/crampi ng. US scheduled. 04/05/24 -?-?-?-?-?-?-?-?-?-?-?-?- 20w 0d 136 lb (+7 lb) 114/82 Negative -?-?-?-?-?-?-?-?-?-?-?-?- Negative 142 -?-?-?-?-?-?-?-?-?-?-?-?- MH-NO VB. Good movement. Re viewed low lying placenta and anatomy US. Flu vaccine given 05/03/24 -?-?-?-?-?-?-?-?-?-?-?-?- 24w 0d 139 lb (+10 lb) 117/73 Trace -?-?-?-?-?-?-?-?-?-?-?-?- Negative 144 24 0 -?-?-?-?-?-?-?-?-?-?-?-?- JV- pt was on L& D 04/28/23 for cramping. Thinks part of mucous plug came out. was sexually active prior to her contraction onset. She is no longer vaping. but uses caffeine often. Recommend avoiding intercourse especially until after her rpt scan is performed for placental position, avoid stimulants. AlisaV- pt was on L&D 04/28/23 for cramping. Thinks part of mucous plug came out. was sexually active prior to her contraction onset. She is no longer vaping. but uses caffeine often. Recommend avoiding intercourse especially until after her rpt scan is performed for placental position, avoid stimulants. vaginitis smear collected. Urine culture was negative. stop abx. 05/31/24 -?-?-?-?-?-?-?-?-?-?-?-?- 28w 0d 145 lb (+16 lb) 110/70 Negative -?-?-?-?-?-?-?-?-?-?-?-?- Negative 136 27 -?-?-?-?-?-?-?-?-?-?-?-?- MH-No VB, LOF. Noting more issue with hemorrhoid/blood with BM. Enc stool softener. Larc. 28 wk labs ROS Constitutional Constitutional: Reports systems reviewed and no addt'l complaints, except as documented Eyes Eyes: Denies change in vision ENT HEENT: Reports systems reviewed and no addt'l complaints, except as documented; Denies headache(s) Cardiovascular Cardiovascular: Reports systems reviewed and no addt'l complaints, except as documented; Denies chest pain or dyspnea Respiratory/Chest Respiratory/Chest: Reports systems reviewed and no addt'l complaints, except as documented Gastrointestinal Gastrointestinal: Reports systems reviewed and no addt'l complaints, except as documented; Denies abdominal pain Genitourinary Genitourinary: Reports systems reviewed and no addt'l complaints, except as documented, contractions Details: present (irregular) and movement Details: present; Denies dysuria or genital lesions Musculoskeletal Musculoskeletal: Reports systems reviewed and no addt'l complaints, except as documented Neurologic Neurologic: Reports systems reviewed and no addt'l complaints, except as docum ented Endocrine Endocrinology: Reports systems reviewed and no addt'l complaints, except as documented Physical Exam Const alert, oriented x3, no apparent distress and healthy appearing HEENT normocephalic and moist oral mucous membranes Head and Scalp: atraumatic Neck full ROM, no lymphadenopathy, supple and thyroid normal General: trachea midline Lymph Lymphatic: no lymphadenopathy noted Chest inspection of chest normal Resp normal respiratory effort Cardio regular rate GI soft to palpation and non-tender GI Narrative: gravid Inspection: gravid external exam normal Manual OB Exam: estimated gestational size appropriate, presentation cephalic, dilated 0, effaced and station Extremity normal to inspection General Extremity: Negative for edema Skin no rashes or lesions noted Neuro no focal motor deficits and deep tendon reflexes 2+ bilaterally Motor Exam: strength 5/5 throughout and clonus absent Psych mental status grossly normal NST FHR Rate Baby A Baseline: 130 Variability:: Moderate Accelerations:: 15 x 15 Decelerations:: None NST Reactive:: Yes FHR Category:: Category I Uterine Activity:: irregular Assessment & Plan (1) Vaginal bleeding during : COMMENT: Admitted June 13 given course of steroids serial labs monitored ultrasound within normal limits (2) UTI (urinary tract infection): COMMENT: urine dip consistent with UTI, macrobid started. 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 Repeat labs again this morning confirm stability will discharge home today. Bleeding precautions reviewed. Charges/Coding Multi Select Codes Visit Charges Observation E&M Codin Observation care discharge Urinary/Genital Urinary/Genital CPT Codes: 36465-60 non-stress test Interp
[2024-06-14] MEDS: Betamethasone/Betamethasone 30 MG/5 ML Vial 12 MG IM (07:24)
[2024-06-14 08:06] LABS: Absolute Lymphocyte Count 1.39 X10^3/uL (0.83-4.51); Absolute Neutrophil Count 5.7 X10^3/uL (2.0-7.7); Basophil# 0.01 X10^3/uL; Basophil% 0.1 % (0-1); Eosinophil# 0.01 X10^3/uL; Eosinophils% 0.1 % (0-5); Hematocrit 33.5 % (37-47); Hemoglobin 10.9 g/dL (12.0-15.0); Lymphocyte # 1.39 X10^3/ul (0.83-4.51); Lymphocyte % 18.2 % (19-41); Mean Corp Hgb Conc 32.5 g/dL (32-36); Mean Corpuscular Hgb 29.1 pg (27.0-32.0); Mean Corpuscular Volume 89.3 fL (81-99); Mean Platelet Vol. 9.1 fl (6.2-12.0); Monocyte# 0.55 X10^3/uL; Monocyte% 7.2 % (0-10); NRBC Flagged by Analyzer 0 % (0-5); Neutrophil # 5.65 X10^3/uL (2.7-7.7); Platelet Count 240 K/mm3 (150-450); RBC Distribution Width CV 12.5 % (11.6-14.6); RBC Distribution Width SD 40.6 fl (35.1-43.9); Red Blood Count 3.75 M/mm3 (4.2-5.4); White Blood Count 7.6 K/mm3 (4.4-11.0)
[2024-06-14 08:36] LABS: Fibrinogen 437 mg/dl (203-444)
== END 2024-06-14 09:15 | disposition home or self-care (01) ==
LOC: WPOUT 23:58 → WP 23:58
PROVIDERS: PCP Nurse Practitioner Family; Visit Provider Obstetrics & Gynecology
DX: O46.93 Antepartum hemorrhage, unspecified, third trimester (principal); O99.891 Other specified diseases and conditions complicating pregnancy; O23.43 Unspecified infection of urinary tract in pregnancy, third trimester; M41.9 Scoliosis, unspecified; O99.333 Smoking (tobacco) complicating pregnancy, third trimester; O09.93 Supervision of high risk pregnancy, unspecified, third trimester; Z3A.30 30 weeks gestation of pregnancy; F17.290 Nicotine dependence, other tobacco product, uncomplicated
CPT/HCPCS: 36415; 59025; 59050; 76815; 81001; 85025; 85384; 87086; 96372; 99221; G0378; J0702

== ENCOUNTER → 2024-07-26 | Outpatient (CLI) | payer MEDICAID, SELFPAY | END | disposition home or self-care (01) | LOC: LABSPEC 11:47 | PROVIDERS: PCP Nurse Practitioner Family; Referring Provider Obstetrics & Gynecology; Visit Provider Obstetrics & Gynecology | DX: O09.92 Supervision of high risk pregnancy, unspecified, second trimester (principal); Z3A.00 Weeks of gestation of pregnancy not specified | CPT/HCPCS: 87081 ==

== ENCOUNTER 2024-08-03 14:37 | Outpatient (CLI) | payer MEDICAID, SELFPAY ==
[2024-08-03 14:53] VITALS: TEMP 36.6
[2024-08-03 14:54] VITALS: BP 119/77; PULSE 94; PULSE 99; O2SAT 98
[2024-08-03 14:56] VITALS: BMI 24.5
--- NOTE | 2024-08-03 17:31 | OB.TRI.PN ---
Progress Notes Progress Note: Patient presents for triage evaluation secondary to contractions FHT: 140 Moderate variability reactive no decelerations category I tracing [place]: q 2-3 irritability Contractions Assessment and plan: false labor 37 weeks Reactive NST, reassuring maternal and status patient discharged to home to follow-up ascheduled. See problem list details for additional plan information. Charges/Coding Procedures Urinary/Genital 52xxx-59xxx: 91969-13 non-stress test Interp
== END 2024-08-03 16:55 | disposition home or self-care (01) ==
LOC: WPOUT 14:44 → WP 14:44
PROVIDERS: PCP Nurse Practitioner Family; Referring Provider Obstetrics & Gynecology; Visit Provider Obstetrics & Gynecology
DX: O47.1 False labor at or after 37 completed weeks of gestation (principal); Z3A.37 37 weeks gestation of pregnancy
CPT/HCPCS: 59025; 59050; 99221; G0378

== ENCOUNTER 2024-08-07 16:50 | Outpatient (CLI) | payer MEDICAID, SELFPAY ==
[2024-08-07 17:06] VITALS: RESP 16; TEMP 37.2
[2024-08-07 17:07] VITALS: BMI 24.5
[2024-08-07 17:09] VITALS: BP 130/79; PULSE 107
[2024-08-07 17:27] LABS: Bacteria 0 SEEN /hpf (None Seen); Mucous, Urine 0 SEEN /hpf (<or=2+); Red Blood Cells-Urine 0 SEEN /hpf (0-5)
[2024-08-07 17:30] LABS: Color, Urine Yellow (Yellow); Glucose, Dipstick Normal (Normal); Ketone-Dipstick 5 mg/dl (Negative); Leukocyte Esterase-Dipstick 25 /ul (Negative); Nitrite-Dipstick Negative (Negative); Occult Blood-Urine Negative /ul (Negative); Protein-Dipstick 100 mg/dl (Negative); Specific Gravity, Urine 1.015 (1.002-1.030); Urine Clarity Sl. Cloudy (Clear); Urine Urobilinogen 1 mg/dl (Normal)
[2024-08-07 17:38] LABS: ROM Internal Control Test YES-OK TO RESULT pt. (Internal QC)
[2024-08-07 17:39] LABS: ROM Patient Test Negative (Negative); Record Kit Lot#, ROM+ K3294
[2024-08-07 17:52] LABS: Urine Bilirubin Dipstick 1 mg/dL (Negative)
[2024-08-07 17:53] LABS: Amorphous Sediment 1+ URATE; Squamous Epithelial Cells - UA 0-5 SEEN /hpf (5-10); White Blood Cells 0-5 SEEN /hpf (0-5)
--- NOTE | 2024-08-07 20:08 | OB.TRI.HP_ITS ---
HPI - General HPI Narrative KINZA CRUZ, is a 28 y/o @ 37 weeks 5 days who presents to L&d with the complain to leaking since mid week. A Rom+ was ordered as well as a UA. Maternal Data Information BETSY Calculator Estimated Delivery Date Method Current WG Current Estimate 08/23/24 LMP (Uncertain) 38w 0d Other Estimates 08/23/24 Ultrasound #1 38w 0d PFSH PFSH Medical History Anxiety History of hemorrhoids ASCUS with positive high risk HPV Depression Home Medications ?Medication ?Instructions ?Recorded ?Last Taken ?Type NK 08/03/24 Unknown History Allergy/AdvReac Type Severity Reaction Status Date / Time diphenhydramine (From Allergy Mild Hives Verified 08/03/24 15:00 Benadryl) Family History Mother Cancer stage 4 brain cancer Grandmother CVA (cerebral vascular accident) Myocardial infarction Grandmother CVA (cerebral vascular accident) Myocardial infarction Surgical History History of placement of ear tubes Social History adopted: No household members: significant other and children number of children: 1 current occupational status: unemployed current occupation: [employer] current occupational exposures/hazards: No pets and animals: No history of recent travel: No sexually active: Yes Smoking Status: Former smoker how long ago did patient quit smokin week alcohol intake: current alcohol intake frequency: holidays/special occasions only details: Not while substance use type: does not use diet: lactose free well-balanced diet: rarely or never caffeine: Yes eating out: 1-3 times/week during the past year weight has: remained stable what type of physical activity do you participate in: none seatbelt use: always do you feel safe at home: Yes additional social history: 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 Date Name GA/Weeks Outcome Route Bth Weight Infant Gen Labor Lgth Anesthesia Del Locatn Provider FOB 06/29/19 Nova 40 live - full term 6lbs 14oz Female e pidural [facility] Dr. Ai Salas Delivery Date: 06/29/19 Last Updated by: Jessie Monte 2nd degree tear Visit Details Expected Delivery Route/Plan Labor Preferences- CB/BF classes: no labor support person: Cheko labor intervention preferences: [] pain management options preferred: epidural cut cord/dad catch: mom : no PP control planned: discussed discussed possible routes of delivery and associated risks: [] special requests: [] Plans Covid status: [] Flu vaccine: [] Tdap vaccine: given Rhogam: NA LARC form signed: yes movement and labor precautions reviewed. Problem list reviewed and updated with the most current plan of care details and appropriate orders placed. Relevant counseling for the gestational age provided. Continue routine care and follow up unless otherwise noted in visit notes/problem list details OB Flowsheet Initial Weight: 129 lb Date -?-?-?-?-?-?-?-?-?-?-?-?- EGA Weight BP Urine Prot -?-?-?-?-?-?-?-?-?-?-?-?- Glucose FHR FuHt Pres Dilation -?-?-?-?-?-?-?-?-?-?-?-?- Effaced St Visit Note 01/14/24 -?-?-?-?-?-?-?-?-?-?-?-?- 8w 2d 129 lb (+0 oz) 133/84 -?-?-?-?-?-?-?-?-?-?-?-?- 156 -?-?-?-?-?-?-?-?-?-?-?-?- KW- CRL cons wit h dates. NIPT accepted 02/11/24 -?-?-?-?-?-?-?-?-?-?-?-?- 12w 2d 133 lb (+4 lb) 134/86 Negative -?-?-?-?-?-?-?-?-?-?-?-?- Negative 150 -?-?--?-?-?-?-?-?-?-?-?-?- - [place] no crmaping 03/08/24 -?-?-?-?-?-?-?-?-?-?-?-?- 16w 0d 133 lb 4 oz (+4 lb 4 oz) 125/81 Negative -?-?-?-?-?-?-?-?-?-?-?-?- Negative 135 -?-?-?-?-?-?-?-?-?-?-?-?- KW- no vb/crampi ng. US scheduled. 04/05/24 -?-?-?-?-?-?-?-?-?-?-?-?- 20w 0d 136 lb (+7 lb) 114/82 Negative -?-?-?-?-?-?-?-?-?-?-?-?- Negative 142 -?-?-?-?-?-?-?-?-?-?-?-?- MH-NO VB. Good movement. Re viewed low lying placenta and anatomy US. Flu vaccine given 05/03/24 -?-?-?-?-?-?-?-?-?-?-?-?- 24w 0d 139 lb (+10 lb) 117/73 Trace -?-?-?-?-?-?-?-?-?-?-?-?- Negative 144 24 0 -?-?-?-?-?-?-?-?-?-?-?-?- JV- pt was on L& D 04/28/23 for cramping. Thinks part of mucous plug came out. was sexually active prior to her contraction onset. She is no longer vaping. but uses caffeine often. Recommend avoiding intercourse especially until after her rpt scan is performed for placental position, avoid stimulants. JV- pt was on L&D 04/28/23 for cramping. Thinks part of mucous plug came out. was sexually active prior to her contraction onset. She is no longer vaping. but uses caffeine often. Recommend avoiding intercourse especially until after her rpt scan is performed for placental position, avoid stimulants. vaginitis smear collected. Urine culture was negative. stop abx. 05/31/24 -?-?-?-?-?-?-?-?-?-?-?-?- 28w 0d 145 lb (+16 lb) 110/70 Negative -?-?-?-?-?-?-?-?-?-?-?-?- Negative 136 27 -?-?-?-?-?-?-?-?--?-?-?-?- MH-No VB, LOF. Noting more issue with hemorrhoid/blood with BM. Enc stool softener. Larc. 28 wk labs 06/15/24 -?-?-?-?-?-?-?-?-?-?-?-?- 30w 1d 146 lb 2 oz (+17 lb 2 oz) 117/78 Negative -?-?-?-?-?-?-?-?-?-?-?-?- Negative 155 29 -?-?-?-?-?-?-?-?-?-?-?-?- KW- no lof/ctx. good fm. Tdap today. was on WP for 2 days due to bleeding. no further red bleeding-still having brown spotting. US was reassuring 06/30/24 -?-?-?-?-?-?-?-?-?-?-?-?- 32w 2d 149 lb (+20 lb) 120/57 Negative -?-?-?-?-?-?-?-?-?-?-?-?- Negative 145 32 -?-?-?-?-?-?-?-?-?-?-?-?- SM- no vb lof go od fm no regular ctx larc signed pepcid ordered 07/12/24 -?-?-?-?-?-?-?-?-?-?-?-?- 34w 0d 153 lb (+24 lb) 122/85 Negative -?-?-?-?-?-?-?-?-?-?-?-?- Negative 147 34 -?-?-?-?-?-?-?-?-?-?-?-?- JV- c/o aches an d pains in back from scoliosis. She is requesting an elective 39 week IOL. 07/26/24 -?-?-?-?-?--?-?-?-?-?-?-?- 36w 0d 157 lb (+28 lb) 126/77 1+ -?-?-?-?-?-?-?-?-?-?-?-?- Negative 160 35.5 Cephalic 1 -?-?-?-?-?-?-?-?-?-?-?-?- 50 -2 JV- patien t states did not drink water today and only had coffee to account for the +1 protein. denies dysuria. gbs collected. 08/01/24 -?-?-?-?-?-?-?-?-?-?-?-?- 36w 6d 157 lb 6 oz (+28 lb 6 oz) 133/89 Negative -?-?-?-?-?-?-?-?-?-?-?-?- Negative 160 36 Cephalic 2 .5 -?-?-?-?-?-?-?-?-?-?-?-?- 60 -2 KW- no vb/ lof/reg ctx. good fm labor precautions ROS Constitutional Constitutional: Reports systems reviewed and no addt'l complaints, except as documented Gastrointestinal Gastrointestinal: Denies bloating, constipation, cramping, diarrhea, nausea or vomiting Genitourinary Genitourinary: Reports other Details: Denies vaginal odor, vaginal bleeding, or vaginal discharge ; Denies difficulty urinating or flank pain Assessment & Plan (1) False labor after 37 completed weeks of gestation: (2) Supervision of high-risk : QUALIFIERS: Trimester: second trimester Qualified Code(s): O09.92 - Supervision of high risk , unspecified, second trimester COMMENT: PRR, , BETSY 08/23/24, boy-Boris PC: GREG Willams: Cheko (3) : QUALIFIERS: Weeks of gestation: 36 weeks Qualified Code(s): Z3A.36 - 36 weeks gestation of COMMENT: gbs neg. 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 Charges/Coding Multi Select Codes Urinary/Genital Urinary/Genital CPT Codes: 32334-20 non-stress test Interp
== END 2024-08-07 18:05 | disposition home or self-care (01) ==
LOC: WPOUT 16:57 → WP 16:57
PROVIDERS: PCP Nurse Practitioner Family; Referring Provider Obstetrics & Gynecology; Visit Provider Obstetrics & Gynecology
DX: O47.1 False labor at or after 37 completed weeks of gestation (principal); O09.93 Supervision of high risk pregnancy, unspecified, third trimester; O99.891 Other specified diseases and conditions complicating pregnancy; M41.9 Scoliosis, unspecified; Z3A.37 37 weeks gestation of pregnancy; Z87.891 Personal history of nicotine dependence
CPT/HCPCS: 59025; 59050; 81001; 84112; 99221; G0378

== ENCOUNTER 2024-08-12 22:25 | Outpatient (CLI) | payer MEDICAID, SELFPAY ==
[2024-08-12 22:38] VITALS: BMI 24.9
[2024-08-12 22:40] VITALS: PULSE 104; O2SAT 99
[2024-08-12 22:41] VITALS: BP 136/78; PULSE 100; RESP 14; TEMP 36.4
--- NOTE | 2024-08-12 22:59 | OB.TRI.PN ---
Progress Notes Date of Service: 08/12/24 Progress Note: Patient presents for triage evaluation secondary to decreased movement at 38 weeks. FHT: 130 Moderate variability reactive no decelerations category I tracing [place]: no Contractions Assessment and plan: Reactive NST, reassuring maternal and status patient discharged to home to follow-up at next appt. See problem list details for additional plan information. Charges/Coding Multi Select Codes Urinary/Genital Urinary/Genital CPT Codes: 73369-47 non-stress test Interp Assessment & Plan (1) Decreased movement: COMMENT: reactive NST and movement felt when on unit (2) UTI (urinary tract infection): COMMENT: urine dip consistent with UTI, macrobid started. Culture negative (3) Supervision of high-risk : QUALIFIERS: Trimester: second trimester Qualified Code(s): O09.92 - Supervision of high risk , unspecified, second trimester COMMENT: PRR, , BETSY 08/23/24, boy-Boris, PC: Екатерина, BF: Cheko (4) : QUALIFIERS: Weeks of gestation: 38 weeks Qualified Code(s): Z3A.38 - 38 weeks gestation of COMMENT: gbs neg. 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
== END 2024-08-12 23:10 | disposition home or self-care (01) ==
LOC: WPOUT 22:30 → WP 22:31
PROVIDERS: PCP Nurse Practitioner Family; Referring Provider Advanced Practice Midwife; Visit Provider Advanced Practice Midwife
DX: O36.8130 Decreased fetal movements, third trimester, not applicable or unspecified (principal); O09.93 Supervision of high risk pregnancy, unspecified, third trimester; O99.891 Other specified diseases and conditions complicating pregnancy; M41.9 Scoliosis, unspecified; Z3A.38 38 weeks gestation of pregnancy; Z87.440 Personal history of urinary (tract) infections
CPT/HCPCS: 59025; 59050; 99221; G0378

== ENCOUNTER 2024-08-17 10:47 | Inpatient (IN) | payer MEDICAID, SELFPAY ==
[2024-08-17] VITALS (34 sets, daily range): BP systolic 123–182; BP diastolic 61–109; PULSE 71–108; RESP 15–22; TEMP 36.7–37.4; O2SAT 89–100; BMI 25.0
[2024-08-17 10:37] LABS: ROM Internal Control Test YES-OK TO RESULT pt. (Internal QC)
[2024-08-17 10:39] LABS: ROM Patient Test POSITIVE (Negative); Record Kit Lot#, ROM+ K3358
[2024-08-17] MEDS: Lactated Ringers 1,000 ML 999 ML IV (11:15)
[2024-08-17 11:37] LABS: Absolute Neutrophil Count 6.5 X10^3/uL (2.0-7.7); Basophil# 0.04 X10^3/uL; Basophil% 0.5 % (0-1); Eosinophil# 0.03 X10^3/uL; Eosinophils% 0.3 % (0-5); Hematocrit 32.4 % (37-47); Hemoglobin 10.3 g/dL (12.0-15.0); Lymphocyte % 17.2 % (19-41); Mean Corp Hgb Conc 31.8 g/dL (32-36); Mean Corpuscular Hgb 26.2 pg (27.0-32.0); Mean Corpuscular Volume 82.4 fL (81-99); Mean Platelet Vol. 10.4 fl (6.2-12.0); Monocyte% 6.9 % (0-10); NRBC Flagged by Analyzer 0 % (0-5); Neutrophil % 74.8 % (47-70); Platelet Count 190 K/mm3 (150-450); RBC Distribution Width SD 39.5 fl (35.1-43.9); Red Blood Count 3.93 M/mm3 (4.2-5.4); White Blood Count 8.7 K/mm3 (4.4-11.0)
[2024-08-17 12:13] LABS: Syphilis Antibodies Nonreactive (Nonreactive)
--- NOTE | 2024-08-17 12:38 | HP.PCM.OB_ITS ---
HPI - General General Date of Admission: 08/17/24 HPI Narrative KINZA CRUZ, is a 28 y/o @ 39 weeks 1 day who presents to L&D with SROm and active labor. She is requesting an epidural. Maternal Data Information BETSY Calculator Estimated Delivery Date Method Current WG Current Estimate 08/23/24 LMP (Uncertain) 39w 1d Other Estimates 08/23/24 Ultrasound #1 39w 1d PFS PFS Medical History (Updated 08/17/24 @ 10:28 by Leida Gasca) HPV (human papilloma virus) infection depression Anxiety History of hemorrhoids ASCUS with positive high risk HPV Depression Home Medications ?Medication ?Instructions ?Recorded ?Last Taken ?Type NK 08/03/24 Unknown History Allergy/AdvReac Type Severity Reaction Status Date / Time diphenhydramine (From Allergy Mild Hives Verified 08/17/24 09:54 Benadryl) Family History Mother Cancer stage 4 brain cancer Grandmother CVA (cerebral vascular accident) Myocardial infarction Grandmother CVA (cerebral vascular accident) Myocardial infarction Surgical History History of placement of ear tubes Social History adopted: No household members: significant other and children number of children: 1 current occupational status: unemployed current occupation: [employer] current occupational exposures/hazards: No pets and animals: No history of recent travel: No sexually active: Yes Smoking Status: Former smoker how long ago did patient quit smokin week alcohol intake: current alcohol intake frequency: holidays/special occasions only details: Not while substance use type: does not use diet: lactose free well-balanced diet: rarely or never caffeine: Yes eating out: 1-3 times/week during the past year weight has: remained stable what type of physical activity do you participate in: none seatbelt use: always do you feel safe at home: Yes additional social history: Boyfriend: Cheko Briseno - [employer] worker History 3 Elective abortions Hx Para 1 Spontaneous abortions 1 Hx # Term Pregnancies Ectopic pregnancies Hx # Pregnancies Multiple births # of living children 1 Past Pregnancies Del. Date Name GA/Weeks Outcome Route Bth Weight Gen Labor Lgth Anesthesia Del Locatn Provider FOB 06/29/19 Nova 40 live - full term 6lbs 14oz Female e pidural [facility] Dr. Ai Salas Delivery Date: 06/29/19 Last Updated by: Jessie Monte 2nd degree tear Visit Details Expected Delivery Route/Plan Labor Preferences- CB/BF classes: no labor support person: Cheko labor intervention preferences: [] pain management options preferred: epidural cut cord/dad catch: mom : no PP control planned: discussed discussed possible routes of delivery and associated risks: [] special requests: [] Plans Covid status: [] Flu vaccine: [] Tdap vaccine: given Rhogam: NA LARC form signed: yes movement and labor precautions reviewed. Problem list reviewed and updated with the most current plan of care details and appropriate orders placed. Relevant counseling for the gestational age provided. Continue routine care and follow up unless otherwise noted in visit notes/problem list details OB Flowsheet Initial Weight: 129 lb Date -?-?-?-?-?-?-?-?-?-?-?-?- EGA Weight BP Urine Prot -?-?-?-?-?-?-?-?-?-?-?-?- Glucose FHR FuHt Pres Dilation -?-?-?-?-?-?-?-?-?-?-?-?- Effaced St Visit Note 01/14/24 -?-?-?-?-?-?-?-?-?-?-?-?- 8w 2d 129 lb (+0 oz) 133/84 -?--?-?-?-?-?-?-?-?-?-?-?- 156 -?-?-?-?-?-?-?-?-?-?-?-?- KW- CRL cons wit h dates. NIPT accepted 02/11/24 -?-?-?-?-?-?-?-?-?-?-?-?- 12w 2d 133 lb (+4 lb) 134/86 Negative -?-?-?-?-?-?-?-?-?-?-?-?- Negative 150 -?-?-?-?-?-?-?-?-?-?-?-?- SM- brown spotti ng no crmaping 03/08/24 -?-?-?-?-?-?-?-?-?-?-?-?- 16w 0d 133 lb 4 oz (+4 lb 4 oz) 125/81 Negative -?-?-?-?-?-?-?-?-?-?-?-?- Negative 135 -?-?-?-?-?-?-?-?-?-?-?-?- KW- no vb/crampi ng. US scheduled. 04/05/24 -?-?-?-?-?-?-?-?-?-?-?-?- 20w 0d 136 lb (+7 lb) 114/82 Negative -?-?-?-?-?-?-?-?-?-?-?-?- Negative 142 -?-?-?-?-?-?-?-?-?-?-?-?- MH-NO VB. Good movement. Re viewed low lying placenta and anatomy US. Flu vac cine given 05/03/24 -?-?-?-?-?-?-?-?-?-?-?-?- 24w 0d 139 lb (+10 lb) 117/73 Trace -?-?-?-?-?-?-?-?-?-?-?-?- Negative 144 24 0 -?-?-?-?-?-?-?-?-?-?-?-?- RAQUEL- pt was on L& D 04/28/23 for cramping. Thinks part of mucous plug came out. was sexually active prior to her contraction onset. She is no longer vaping. but uses caffeine often. Recommend avoiding intercourse especially until after her rpt scan is performed for placental position, avoid stimulants. AlisaV- pt was on L&D 04/28/23 for cramping. Thinks part of mucous plug came out. was sexually active prior to her contraction onset. She is no longer vaping. but uses caffeine often. Recommend avoiding intercourse especially until after her rpt scan is performed for placental position, avoid stimulants. vaginitis smear collected. Urine culture was negative. stop abx. 05/31/24 -?-?-?-?-?-?-?-?-?-?-?-?- 28w 0d 145 lb (+16 lb) 110/70 Negative -?-?-?-?-?-?-?-?-?-?-?-?- Negative 136 27 -?-?-?-?-?-?-?-?-?-?-?-?- MH-No VB, LOF. Noting more issue with hemorrhoid/blood with BM. Enc stool softener. Larc. 28 wk labs 06/15/24 -?-?-?-?-?-?-?-?-?-?-?-?- 30w 1d 146 lb 2 oz (+17 lb 2 oz) 117/78 Negative -?-?-?-?-?-?-?-?-?-?-?-?- Negative 155 29 -?-?-?-?-?-?-?-?-?-?-?-?- KW- no lof/ctx. good fm. Tdap today. was on WP for 2 days due to bleeding. no further red bleeding-still having brown spotting. US was reassuring 06/30/24 -?-?-?-?-?-?-?-?-?-?-?-?- 32w 2d 149 lb (+20 lb) 120/57 Negative -?-?-?-?-?-?-?-?-?-?-?-?- Negative 145 32 -?-?-?-?-?-?-?-?-?-?-?-?- SM- no vb lof go od fm no regular ctx larc signed pepcid ordered 07/12/24 -?-?-?--?-?-?-?-?-?-?-?-?- 34w 0d 153 lb (+24 lb) 122/85 Negative -?-?-?-?-?-?-?-?-?-?-?-?- Negative 147 34 -?-?-?-?-?-?-?-?-?-?-?-?- JV- c/o aches an d pains in back from scoliosis. She is requesting an elective 39 week IOL. 07/26/24 -?-?-?-?-?-?-?-?-?-?-?-?- 36w 0d 157 lb (+28 lb) 126/77 1+ -?-?-?-?-?-?-?-?-?-?-?-?- Negative 160 35.5 Cephalic 1 -?-?-?-?-?-?-?-?-?-?-?-?- 50 -2 JV- patien t states did not drink water today and only had coffee to account for the +1 protein. denies dysuria. gbs collected. 08/01/24 -?-?-?-?-?-?-?-?-?-?-?-?- 36w 6d 157 lb 6 oz (+28 lb 6 oz) 133/89 Negative -?-?-?-?-?-?-?-?-?-?-?-?- Negative 160 36 Cephalic 2 .5 -?-?-?-?-?-?-?-?-?-?-?-?- 60 -2 KW- no vb/ lof/reg ctx. good fm labor precautions 08/09/24 -?-?-?-?-?-?-?-?-?-?-?-?- 38w 0d 160 lb (+31 lb) 125/88 Negative -?-?-?-?-?-?-?-?-?-?-?-?- Negative 135 38 Cephalic 2 -?-?-?-?-?-?-?-?-?-?-?-?- 60 -2 MYRA pt was on L&D over the weekend for leaking fluid. She is bleeding slightly from her her prior vaginal exam. Rom plus was negative. ZAIRA today MYRA pt was on L&D over the w eekend for leaking fluid. She is bleeding slightly from her her prior vaginal exam. Rom plus was negative. ZAIRA today is 12 08/16/24 -?-?-?-?-?-?-?-?-?--?-?-?- 39w 0d 163 lb 4 oz (+34 lb 4 oz) 134/86 Negative -?-?-?-?-?-?-?-?-?-?-?-?- Negative 150 39 Cephalic 3 -?-?-?-?-?-?-?--?-?-?-?-?- 70 -2 SM- no vb lof good fm n oreuglar ctx membranes swept ROS Constitutional Constitutional: Denies change in weight, fatigue, fever(s), headache(s), poor appetite or weakness Eyes Eyes: Denies blurry vision, change in vision, seeing flashes or spots in vision ENT HEENT: Denies dizziness, headache(s), loss taste/smell or sore throat Cardiovascular Cardiovascular: Denies chest pain, dizziness, dyspnea, irregular heart rhythm, leg edema, palpitations, rapid heart rate or vomiting Respiratory/Chest Respiratory/Chest: Denies chest tightness, cough, dyspnea or breast pain Gastrointestinal Gastrointestinal: Denies abdominal pain, anorexia, constipation, cramping, diarrhea, hemorrhoids, vomiting or weight changes Genitourinary Genitourinary: Denies dysuria, flank pain, genital lesions, genital pain, urinary frequency or urinary urgency Musculoskeletal Musculoskeletal: Denies back pain, difficulty walking, joint pain, limited range of motion, muscle cramps or numbness Integumentary Integumentary: Denies lesions or unusual bruising Neurologic Neurologic: Denies abnormal movements, abnormal speech, dizziness, numbness, seizure-like activity or syncope Psychiatric Psychiatric: Denies anxiety, behavioral changes, change in appetite, change in libido, cognitive impairment, confusion, depression, difficulty concentrating, hallucinations or suicidal thoughts Endocrine Endocrinology: Denies excessive sweating, polydipsia or polyuria Hematologic/Lymphatic Hematologic/Lymphatic: Denies easy bleeding, easy bruising or lymphadenopathy Allergic/Immunologic Allergic/Immunologic: Denies itchy eyes, lip swelling, seasonal rhinorrhea, rhinitis, throat swelling, tongue swelling, eczemia, wheezing or asthma Vital Signs Vital Signs Vital Signs: 08/17/24 09:55 08/17/24 09:55 08/17/24 10:01 Temperature Temperature Source Pulse Rate 105 H 94 Respiratory Rate Blood Pressure 130/86 H BP Systolic 130 BP Diastolic 86 Pulse Ox 08/17/24 10:01 08/17/24 10:02 08/17/24 10:02 Temperature Temperature Source Oral Pulse Rate Respiratory Rate 16 Blood Pressure BP Systolic BP Diastolic Pulse Ox 99 08/17/24 10:02 08/17/24 10:02 08/17/24 11:52 Temperature 98.3 F Temperature Source Pulse Rate Respiratory Rate 22 H Blood Pressure BP Systolic BP Diastolic Pulse Ox 99 08/17/24 11:53 08/17/24 11:53 08/17/24 11:53 Temperature Temperature Source Pulse Rate 100 Respiratory Rate Blood Pressure 156/81 H BP Systolic 156 BP Diastolic 81 Pulse Ox 99 08/17/24 11:59 08/17/24 11:59 08/17/24 11:59 Temperature Temperature Source Pulse Rate 93 Respiratory Rate 20 H Blood Pressure 162/82 H BP Systolic 162 BP Diastolic 82 Pulse Ox 08/17/24 12:03 08/17/24 12:03 08/17/24 12:07 Temperature Temperature Source Pulse Rate 84 Respiratory Rate Blood Pressure 150/87 H 182/86 H BP Systolic 150 182 BP Diastolic 87 86 Pulse Ox 08/17/24 12:07 08/17/24 12:07 08/17/24 12:07 Temperature Temperature Source Pulse Rate 88 81 Respiratory Rate Blood Pressure BP Systolic BP Diastolic Pulse Ox 99 08/17/24 12:08 08/17/24 12:08 08/17/24 12:08 Temperature Temperature Source Pulse Rate 80 Respiratory Rate 20 H Blood Pressure 128/61 H BP Systolic 128 BP Diastolic 61 Pulse Ox 08/17/24 12:12 08/17/24 12:12 08/17/24 12:13 Temperature Temperature Source Pulse Rate 82 Respiratory Rate Blood Pressure 141/65 H BP Systolic 141 BP Diastolic 65 Pulse Ox 100 08/17/24 12:13 08/17/24 12:13 08/17/24 12:17 Temperature Temperature Source Pulse Rate 81 86 Respiratory Rate 17 Blood Pressure BP Systolic BP Diastolic Pulse Ox 08/17/24 12:17 08/17/24 12:22 08/17/24 12:22 Temperature Temperature Source Pulse Rate 83 Respiratory Rate Blood Pressure BP Systolic BP Diastolic Pulse Ox 100 100 08/17/24 12:23 08/17/24 12:23 08/17/24 12:25 Temperature Temperature Source Pulse Rate 93 Respiratory Rate Blood Pressure 152/109 H 142/86 H BP Systolic 152 142 BP Diastolic 109 86 Pulse Ox 08/17/24 12:25 08/17/24 12:25 08/17/24 12:27 Temperature Temperature Source Pulse Rate 91 78 Respiratory Rate 18 Blood Pressure BP Systolic BP Diastolic Pulse Ox 08/17/24 12:27 08/17/24 12:32 08/17/24 12:32 Temperature Temperature Source Pulse Rate 92 Respiratory Rate Blood Pressure BP Systolic BP Diastolic Pulse Ox 100 100 Weight Weight: 160 lb Body Mass Index (BMI) 25.0 Physical Exam Const alert, oriented x3, no apparent distress and healthy appearing General Appearance: cooperative; Negative for anxious HEENT normocephalic Face and Sinus: normal facial exam Eyes EOMs intact bilaterally and no scleral icterus General Eye: normal appearance of both eyes Neck full ROM and supple Lymph Lymphatic: no lymphadenopathy noted Chest Chest: abnormal inspection of the chest Resp normal respiratory effort Effort and Inspection: able to speak in complete sentences Cardio regular rate GI soft to palpation and non-tender Inspection: gravid Palpation: soft; Negative for tender external exam normal Amniotic Fluid: ROM+plus positive + Back/Spine no CVA tenderness Extremity normal to inspection, full ROM and no clubbing, cyanosis or edema General Extremity: Negative for calf tenderness or edema Skin Lesions: no lesions Rashes: no rashes Psych mental status grossly normal Labs Labs Labs: Blood Type B POSITIVE Antibody Screen NEGATIVE Hct 32.4 % (37-47) L Hgb 10.3 g/dL (12.0-15.0) L Obstetrics Ultrasound Syphilis Total Ab Nonreactive (Nonreactive) Rubella IgG Antibody Reactive (Nonreactive) Hep Bs Antigen Non-Reactive (Nonreactive) Hepatitis C Antibody Non-Reactive (Nonreactive) Chlamydia DNA (ELIEZER) Negative (Negative) N.gonorrhoeae DNA (ELIEZER) Negative (Negative) HIV 1&2 Antibody Non-Reactive (Nonreactive) Glucose 1 Hr 50 gm 115 mg/dL (70-140) Gest Glucose Tolerance MG/DL Rhogam given: No Miscellaneous Test Assessment & Plan (1) Supervision of high-risk : QUALIFIERS: Trimester: second trimester Qualified Code(s): O09.92 - Supervision of high risk , unspecified, second trimester COMMENT: PRR, , BETSY 08/23/24, boy-Boris, PC: Екатерина BF: Cheko (2) : QUALIFIERS: Weeks of gestation: 39 weeks Qualified Code(s): Z3A.39 - 39 weeks gestation of COMMENT: gbs neg. 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 Pain management: plans epidural. GBS negative. Management of any complications: none I have reviewed the [facility] and made any clinically relevant updates.
[2024-08-17] MEDS: Lactated Ringers 1,000 ML 200 ML IV (12:39)
[2024-08-17] MEDS: fentaNYL-bupivacaine (epidural) 100 ML BAG EPIDURAL (12:39)
[2024-08-17] MEDS: Oxytocin 15 Units/NS 250ml 15 UNITS/250 ML IV.SOLN 334 UNITS IV (17:07)
--- NOTE | 2024-08-17 17:37 | OB.VAGDELI_ITS ---
Assessment & Plan (1) Supervision of high-risk : QUALIFIERS: Trimester: second trimester Qualified Code(s): O09.92 - Supervision of high risk , unspecified, second trimester COMMENT: PRR, , BETSY 08/23/24, boy-Boris, PC: Екатерина, BF: Cheko (2) : QUALIFIERS: Weeks of gestation: 39 weeks Qualified Code(s): Z3A.39 - 39 weeks gestation of COMMENT: gbs neg. 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 (3) Scoliosis: QUALIFIERS: Scoliosis type: unspecified scoliosis Spinal region: unspecified Qualified Code(s): M41.9 - Scoliosis, unspecified Maternal Data Information BETSY Calculator Estimated Delivery Date Method Current WG Current Estimate 08/23/24 LMP (Uncertain) 39w 1d Other Estimates 08/23/24 Ultrasound #1 39w 1d Final BETSY Source: LMP Gestational age: 39 weeks 1 day Doctor Who Attended Delivery: Mira Jiang Vaginal Delivery Maternal Presentation Maternal Presentation: Active Labor Vaginal Delivery Information Procedure Performed: Spontaneous Vaginal Delivery Surgeon/Practitioner: Tala Capps Date of Procedure: 08/17/24 Pre-Procedure Diagnosis: active labor at term Post-Procedure Diagnosis: active labor at term, Type of anesthesia: Epidural Estimated Blood Loss: 100cc Time of Delivery: 17:04 Findings Description of procedure: Patient began pushing and delivered the head in the TOSHA presentation. The head was delivered atraumatically.. The anterior and posterior shoulders delivered without complication followed by the rest of the and the was placed on the maternal abdomen. Delayed cord clamping was employed for approximately 60 seconds. Cord was clamped and cut and gentle traction was applied to the cord and the placenta delivered spontaneously immediately following it was noted to be intact with three-vessel cord. The perineum and vagina were inspected and noted to have a 1st degree perineal laceration. This was repaired with a 3-0 vicryl EBL was 100 cc. Patient and infant tolerated delivery well. Procedure findings: viable male infant Boris Presentation: Vertex Amniotic Membrane Rupture Type: Spontaneous Amniotic Fluid Description: Thick meconium Placental Delivery Description: Spontaneous Placenta Disposition: [facility] Specimen collected: No Cord Vessel Description: 3 Vessels Cord Entanglement: None Infant A Gender: Male (1 minute): 8 (5 minute): 9 Delayed Cord Clamping: Yes Chargeback Analyst residence life coordinator: No Post Vaginal Deli Medications given after delivery: IV Pitocin Episiotomy Description: None Laceration: 1st degree Complication Complications: No Procedures Urinary/Genital [id number]: [id number] delivery only
--- NOTE | 2024-08-17 17:39 | DCINST_ITS ---
Discharge Instructions Diet Discharge Diet: No restrictions DC O2, CPAP, BIPAP needs Home O2 Discharge instructions: No Dressing / Incision Discharge Activity: Return to Normal Activity, May Not Drive (while taking narcotic pain medications.) and May Shower May resume sexual activity in: 4-6 weeks Dressing / Incision Call your doctor if your incision/area has: Continuous Slow Oozing, Sudden Increased Bleeding, Increased Pain/ Swelling, Increased Redness and Foul Smelling Discharge Follow Up Care Please Follow Up With: Tala Capps, When: Call [phone] to make an appointment with your doctor in 6 weeks. If you had elevated blood pressure or 4th degree laceration, you will need to be seen in 2 weeks. Test Results: Test results from this visit will be discussed in further detail at your follow- up appointment, if applicable. Discharge Plan Admission Admit Date/Time: 08/17/24 10:47 Attending Provider: Tala Capps Primary Care Provider: Les Meredith NP Discharge Orders/Prescriptions Prescriptions: No Action NK Referrals / Follow Up: Les Meredith NP, REGISTERED MAIL CLERK-C [Primary Care Provider] -
[2024-08-17] MEDS: Acetaminophen 500 MG Tablet 1000 MG PO (19:29)
[2024-08-17] MEDS: Oxytocin 15 Units/NS 250ml 15 UNITS/250 ML IV.SOLN 83 UNITS IV (19:30)
[2024-08-18] VITALS (8 sets, daily range): BP systolic 123–137; BP diastolic 73–91; PULSE 74–144; RESP 15–16; TEMP 36.5–36.8; O2SAT 81–98
[2024-08-18] MEDS: Ibuprofen 600 MG Tablet PO (02:13)
--- NOTE | 2024-08-18 07:48 | PN.OBGYN_ITS ---
Subjective Subjective Patient doing well without complaints. Tolerating PO. Ambulating and voiding without difficulty. Feeding well. Denies chest pain, shortness of breath, calf pain/swelling, fevers, chills, lightheadedness. Objective Data Objective Data Vital Signs: Vital Signs Temp Pulse Resp BP Pulse Ox O2 Del Method 98.2 F 86 16 135/89 H 81 Room Air 08/17/24 23:20 08/18/24 03:51 08/18/24 03:51 08/18/24 03:51 08/18/24 03:51 08/18/24 03:51 Oxygen Delivery Method Room Air Weight: 160 lb Body Mass Index (BMI) 25.0 Intake & Output: Intake and Output for Last 24 Hours 08/16/24 08/17/24 08/18/24 23:59 23:59 23:59 Intake Total 2500 / 2500 Output Total 550 / 550 Balance 1950 / 1950 Lab / Micro Data 08/17/24 11:15 Labs: Laboratory Results - last 24 hr 08/17/24 09:50: Vag Amniotic Fld Detect POSITIVE H 08/17/24 11:15: WBC 8.7, RBC 3.93 L, Hgb 10.3 L, Hct 32.4 L, MCV 82.4, MCH 26.2 L, MCHC 31.8 L, RDW Std Deviation 39.5, RDW Coeff of Teresita 13.0, Plt Count 190, MPV 10.4, Immature Gran % (Auto) 0.300, Neut % (Auto) 74.8 H, Lymph % (Auto) 17.2 L, [place] % (Auto) 6.9, Eos % (Auto) 0.3, Baso % (Auto) 0.5, Absolute Neuts (auto) 6.5, Absolute Lymphs (auto) 1.50, Nucleated RBC % 0, Syphilis Total Ab Nonreactive, Blood Type B POSITIVE, Antibody Screen NEGATIVE Physical Exam Const alert and oriented x3 HEENT normocephalic Eyes PERRL Neck full ROM Resp normal respiratory effort GI soft to palpation GI Narrative: FF below U Assessment & Plan (1) Spontaneous vaginal delivery: COMMENT: 08/17/24 JV Boy Boris PLAN: Plan s/p PPD # 1 1. routine post delivery care 2. bottle feeding- support given 3. rh positive 4. rubella immune 5.home today
[2024-08-18] MEDS: Acetaminophen 500 MG Tablet 1000 MG PO (07:58)
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
--- NOTE | 2024-08-22 10:03 | NURSING ---
Follow up phone call made, no answer, patient called back. Patient states she is doing well and only having minimal pain. Denies any questions or concerns at this time.
== END 2024-08-18 18:35 | disposition home or self-care (01) | DRG 560 ==
LOC: WPOUT 10:48 → WP 10:48
PROVIDERS: Admitting Provider Obstetrics & Gynecology; PCP Nurse Practitioner Family; Referring Provider Obstetrics & Gynecology; Visit Provider Obstetrics & Gynecology
DX: O42.92 Full-term premature rupture of membranes, unspecified as to length of time between rupture and onset of labor (principal); Z37.0 Single live birth; M41.9 Scoliosis, unspecified; O99.892 Other specified diseases and conditions complicating childbirth; O77.0 Labor and delivery complicated by meconium in amniotic fluid; O70.0 First degree perineal laceration during delivery; Z3A.39 39 weeks gestation of pregnancy; Z87.891 Personal history of nicotine dependence
CPT/HCPCS: 59050; 84112; 85025; 86780; 86850; 86900; 86901; 99221; G0378

== ENCOUNTER → 2024-11-01 | Outpatient (CLI) | payer MEDICAID, SELFPAY | END | disposition home or self-care (01) | LOC: LABSPEC 15:58 | PROVIDERS: PCP Nurse Practitioner Family; Referring Provider Nurse Practitioner Women's Health; Visit Provider Nurse Practitioner Women's Health | DX: Z12.4 Encounter for screening for malignant neoplasm of cervix (principal) | CPT/HCPCS: 88175; G0145 ==